=== PATIENT | male | born 1970 | race Caucasian/White ===

== ENCOUNTER 2018-01-14 23:09 | Inpatient (IN) | payer BC ==
[2018-01-14] MEDS ORDERED: Ketorolac 60 MG/2 ML SDV IM ONE (23:26)
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
[2018-01-15] MEDS ORDERED: HYDROmorphone 1 MG/ML Syringe IVPUSH ONE (00:31)
[2018-01-15 01:04] LABS: CHLORIDE,CL 105 mmol/L (98-107); SODIUM,NA 140 mmol/L (136-148)
[2018-01-15] MEDS ORDERED: Iopamidol 755 Mg/ML 100 ML Bottle IVPUSH ONE (01:58)
[2018-01-15] MEDS ORDERED: HYDROmorphone 2 MG/ML SDV IVPUSH PRN (02:36)
[2018-01-15] MEDS ORDERED: Ondansetron 4 MG/2 ML SDV IVPUSH PRN (02:37)
[2018-01-15] MEDS: Dextrose 5%-0.45% NaCl 1,000 ML IV SCH ×3 (03:22→17:29)
--- NOTE | 2018-01-15 10:33 | PCM.SN ---
- Free Text/Narrative Note: pt seen, chart reviewed, admit for observation; [id number]
[2018-01-15] MEDS ORDERED: HYDROmorphone 2 MG Tab PO PRN (10:34)
[2018-01-15] MEDS: Ketorolac 30 MG/ML SDV IVPUSH PRN ×2 (11:02→18:17)
[2018-01-15] MEDS: HYDROmorphone 2 MG Tab PO PRN ×2 (13:34→19:39)
[2018-01-15] MEDS ORDERED: Diazepam 2 MG Tab PO ONE (21:05)
[2018-01-15] MEDS: Morphine 4 MG/ML Syringe IVPUSH PRN (22:56)
[2018-01-16] MEDS: Dextrose 5%-0.45% NaCl 1,000 ML IV SCH ×3 (00:12→14:36)
[2018-01-16] MEDS ORDERED: Diazepam 2 MG Tab PO PRN ×2 (01:20→10:00)
[2018-01-16] MEDS: Morphine 4 MG/ML Syringe IVPUSH PRN ×4 (03:23→14:47)
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
[2018-01-16] MEDS: Docusate Sodium 100 MG Cap PO SCH (08:43)
--- NOTE | 2018-01-16 11:19 | CR ---
EXAM DATE: 01/15/18 PATIENT'S AGE: 47 Patient: IRIS VALDERRAMA Facility: [place], [place] Site . Site : 1970 Study: XRay Chest ribs [id number]/6/2018 12:29:37 AM Ordering Physician: Carlos Lake Final Report: INDICATION: Pain following fall TECHNIQUE: Chest and left ribs 3 views. COMPARISON: None FINDINGS: Cardiovascular and mediastinum: Heart size and vasculature are normal in caliber and appearance. Mediastinum is within normal limits. Lungs and pleural spaces: Lungs are clear. No sign of infiltrate or mass. No sign of pleural effusion. No pneumothorax. Bones and soft tissues: Fractures left 5th through 9th ribs. IMPRESSION: : Fractures left 5th through 9th ribs. Dictated by Drake Fry MD @ 01/15/2018 12:34:08 AM Dictated by: Drake Fry MD @ 01/15/2018 00:34:17 (Electronic Signature) Report Signed by Proxy. FAUZIA
--- NOTE | 2018-01-16 11:20 | CR ---
EXAM DATE: 01/15/18 PATIENT'S AGE: 47 Patient: IRIS VALDERRAMA Facility: [place], [place] Site . Site : 1970 Study: XRay Spine Thoracic thoracolumbar [id number]/6/2018 12:30:28 AM Ordering Physician: Carlos Lake Final Report: Indication: Pain following fall Technique: Two views thoracolumbar spine Comparison: None. Findings: No evidence of fractures or malalignment involving the psoas portions of thoracolumbar spine. Fractures of the left 8th and 9th ribs are noted. Please see left rib series report. Impression: No evidence of acute trauma involving visualized portions of the thoracolumbar spine. Dictated by Drake Fry MD @ 01/15/2018 12:38:19 AM Dictated by: Drake Fry MD @ 01/15/2018 00:38:28 (Electronic Signature) Report Signed by Proxy. FAUZIA
--- NOTE | 2018-01-16 11:21 | CT ---
EXAM DATE: 01/15/18 PATIENT'S AGE: 47 Patient: IRIS VALDERRAMA Facility: [place], [place] Site . Site : 1970 Study: CT Chest [id number]/6/2018 1:44:25 AM Ordering Physician: Carlos Lake Final Report: INDICATION: Rib fractures after fall TECHNIQUE: CT chest was acquired with 100 cc Isovue 370 IV contrast. COMPARISON: Chest radiograph from same day FINDINGS: Cardiovascular structures: Heart size is normal. Thoracic aorta and main pulmonary artery are normal in caliber. Mediastinum and felicia: No mass or adenopathy. All hiatal hernia. There is fluid within the distal esophagus. Lungs: Clear. Pleura and pericardium: No effusions. Small amount of left extrapleural hematoma adjacent to left-sided rib fractures Chest wall and axilla: No mass or adenopathy. Upper abdomen: Hepatic steatosis. The infiltration of the pancreas. Bones: Minimally displaced left posterior 6th through 9th rib fractures. IMPRESSION: 1. Minimally displaced left posterior 6th through 9th rib fractures with small amount of adjacent extrapleural hematoma. No pneumothorax or hemothorax. 2. Small hiatal hernia. 3. Fluid in the distal esophagus. This can be seen with reflux disease. 4. Hepatic steatosis. Please note that all CT scans at this facility use dose modulation, iterative reconstruction, and/or weight-based dosing when appropriate to reduce radiation dose to as low as reasonably achievable. Dictated by Binta Bartlett MD @ Jan 15 2018 1:47AM (Electronic Signature) Report Signed by Proxy. [facility]
--- NOTE | 2018-01-16 11:23 | CT ---
EXAM DATE: 01/15/18 PATIENT'S AGE: 47 Patient: IRIS VALDERRAMA Facility: [place], [place] Site . Site : 1970 Study: CT Abdomen/Pelvis [id number]/6/2018 1:44:59 AM Ordering Physician: Carlos Lake Final Report: INDICATION: Fall, rib fractures TECHNIQUE: CT abdomen and pelvis acquired with 100 cc Isovue 370 IV contrast. COMPARISON: None FINDINGS: Lower chest: Minimally displaced left posterior 7th through 10th rib fractures. Small amount of adjacent extrapleural hematoma. No hemothorax. Small hiatal hernia. Liver: Hepatic steatosis. Spleen: No splenic trauma. The spleen measures 16.7 cm in length. Pancreas: Fatty infiltration of the pancreas. Gallbladder and bile ducts: Unremarkable. Adrenal glands: Unremarkable. Kidneys: Unremarkable. GI tract: Unremarkable. Appendix is normal. Vascular structures: Unremarkable. Lymph nodes: Unremarkable. Miscellaneous: Unremarkable. No free air or significant free fluid. Pelvic Organs: Unremarkable. Bones: Unremarkable for age. IMPRESSION: 1. No organ injury within the abdomen or pelvis. 2. Minimally displaced left posterior 7th through 10th rib fractures. 3. Hepatic steatosis. 4. Splenomegaly. Please note that all CT scans at this facility use dose modulation, iterative reconstruction, and/or weight-based dosing when appropriate to reduce radiation dose to as low as reasonably achievable. Dictated by Binta Bartlett MD @ Jan 15 2018 1:53AM ----- ADDENDUM ----- Addendum: Impression #2 should read as follows: "Minimally displaced left posterior 6th through 9th rib fractures." Dictated by Binta Bartlett MD @ Jan 15 2018 2:04AM (Electronic Signature) Report Signed by Proxy. [facility]
[2018-01-16] MEDS: oxyCODONE 5 MG Tab PO PRN (11:48)
--- NOTE | 2018-01-16 12:22 | CT ---
EXAMINATION: CT chest without contrast HISTORY: Pain COMPARISON: 01/15/2018 TECHNIQUE: Axial CT images obtained through the chest without contrast. Coronal and sagittal reconstr uctions obtained. FINDINGS: Motion artifact is noted. There is a small left pleural effusion, dependent atelectasis chinyere aterally. No pneumothorax is noted. The heart is normal in size without a pericardial effusion. No me diastinal or axillary lymphadenopathy. Central airways are clear. There is fatty infiltration of the liver. The spleen is enlarged. Mildly displaced fifth through 10th left rib fractures noted. IMPRESSION: 1. Mildly displaced fifth through 10th left rib fractures noted. 2. Small left pleural effusion without pneumothorax. 3. Dependent atelectasis bilaterally. 4. Fatty infiltration of liver. 5. Splenomegaly.
--- NOTE | 2018-01-16 13:22 | CR ---
EXAM DATE: 01/15/18 PATIENT'S AGE: 47 Patient: IRIS VALDERRAMA Facility: [place], [place] Site . Site : 1970 Study: XRay Chest [id number]/[id number]/2018 11:52:51 AM Ordering Physician: Jovanna Keller Final Report: INDICATION: rib fractures TECHNIQUE: PA and lateral chest films are submitted. COMPARISON: Chest CT 01/15/2018. FINDINGS: As noted on CT, there are fractures involving the posterior left 6th through 9th ribs. No evidence for pneumothorax or hemothorax. Mild atelectatic changes at the lung bases, left greater than right. Heart size and pulmonary vasculature are normal. IMPRESSION: No significant change since the CT exam earlier today. Dictated by Brandon Maldonado MD @ 01/15/2018 12:16:09 PM Dictated by: Brandon Maldonado MD @ 01/15/2018 12:16:16 (Electronic Signature) Report Signed by Proxy. FAUZIA
[2018-01-16] MEDS ORDERED: Diazepam 2 MG Tab ONE (23:18)
[2018-01-17] MEDS: oxyCODONE 5 MG Tab PO PRN ×2 (03:11→07:18)
[2018-01-17] MEDS ORDERED: Diazepam 2 MG Tab PO PRN (03:30)
[2018-01-17] MEDS: Morphine 4 MG/ML Syringe IVPUSH PRN ×2 (03:59→07:18)
[2018-01-17] MEDS: Dextrose 5%-0.45% NaCl 1,000 ML IV SCH ×3 (04:02→17:20)
--- NOTE | 2018-01-17 09:23 | PCM.SURGPN ---
- General Info Date of Service: 01/16/18 - Patient Data Vitals - Most Recent: Last Vital Signs Temp 98.7 F 01/17/18 03:40 Pulse 80 01/17/18 07:46 Resp 18 01/17/18 07:46 BP 134/88 01/17/18 07:46 Pulse Ox 93 L 01/17/18 07:46 Weight - Most Recent: 246 lb I&O - Last 24 Hours: Intake & Output 01/16/18 01/17/18 01/17/18 22:59 06:59 14:59 Intake Total 1399 Output Total 3075 Balance -1676 Lab Results Last 24 Hrs: Laboratory Results - last 24 hr 01/17/18 Range/Units 09:05 WBC 10.79 (4.0-11.0) K/uL RBC 5.14 (4.50-5.90) M/uL Hgb 15.7 (13.0-17.0) g/dL Hct 44.0 (38.0-50.0) % MCV 85.6 (80.0-98.0) fL MCH 30.5 (27.0-32.0) pg MCHC 35.7 (31.0-37.0) g/dL RDW Std Deviation 42.4 (28.0-62.0) fl RDW Coeff of Sylvia 14 (11.0-15.0) % Plt Count 158 (150-400) K/uL MPV 10.20 (7.40-12.00) fL Neut % (Auto) 81.7 H (48.0-80.0) % Lymph % (Auto) 10.6 L (16.0-40.0) % [place] % (Auto) 7.3 (0.0-15.0) % Eos % (Auto) 0.3 (0.0-7.0) % Baso % (Auto) 0.1 (0.0-1.5) % Neut # (Auto) 8.8 H (1.4-5.7) K/uL Lymph # (Auto) 1.1 (0.6-2.4) K/uL [place] # (Auto) 0.8 (0.0-0.8) K/uL Eos # (Auto) 0.0 (0.0-0.7) K/uL Baso # (Auto) 0.0 (0.0-0.1) K/uL Nucleated RBC % 0.0 /100WBC Nucleated RBCs # 0 K/uL Med Orders - Current: Current Medications Diazepam (Valium) 2 mg PO Q12H PRN PRN Reason: Anxiety Docusate Sodium (Colace) 100 mg PO DAILY [facility] Last Admin: 01/16/18 08:43 Dose: 100 mg Dextrose/Sodium Chloride (Dextrose 5%-1/2 Ns) 1,000 mls @ 150 mls/hr IV ASDIRECTED [facility] Last Admin: 01/17/18 04:02 Dose: 150 mls/hr Morphine Sulfate (Morphine) 3 mg IVPUSH Q3H PRN PRN Reason: Pain Last Admin: 01/17/18 07:18 Dose: 3 mg Ondansetron HCl (Zofran) 4 mg IVPUSH Q4H PRN PRN Reason: Nausea/Vomiting Oxycodone HCl (Oxycodone) 5 mg PO Q4H PRN PRN Reason: Pain Last Admin: 01/17/18 07:18 Dose: 5 mg Discontinued Medications Diazepam (Valium) 1 mg PO ONETIME ONE Stop: 01/15/18 21:06 Last Admin: 01/15/18 21:13 Dose: 1 mg Diazepam (Valium) 1 mg PO BID PRN PRN Reason: Spasms Last Admin: 01/16/18 08:41 Dose: 1 mg Diazepam (Valium) 1 mg PO Q8H PRN PRN Reason: Spasms Diazepam (Valium) Confirm Administered Dose 2 mg .ROUTE .STK-MED ONE Stop: 01/16/18 23:19 Last Admin: 01/17/18 03:31 Dose: Not Given Hydromorphone HCl (Dilaudid) 1 mg IVPUSH ONETIME ONE Stop: 01/15/18 00:32 Last Admin: 01/15/18 00:35 Dose: 1 mg Hydromorphone HCl (Dilaudid) 1 mg IVPUSH Q4H PRN PRN Reason: Pain Last Admin: 01/15/18 09:29 Dose: 1 mg Hydromorphone HCl (Dilaudid) 2 mg PO Q6H PRN PRN Reason: Pain Hydromorphone HCl (Dilaudid) 2 mg PO Q6H PRN PRN Reason: Pain (moderate 4-6) Last Admin: 01/15/18 19:39 Dose: 2 mg Iopamidol (Isovue-370 (76%)) 100 ml IVPUSH ONETIME ONE Stop: 01/15/18 01:59 Last Admin: 01/15/18 02:12 Dose: 100 ml Ketorolac Tromethamine (Toradol) 60 mg IM ONETIME ONE Stop: 01/14/18 23:27 Last Admin: 01/14/18 23:30 Dose: 60 mg Ketorolac Tromethamine (Toradol) 30 mg IVPUSH Q8H PRN PRN Reason: Abdominal Pain Stop: 01/20/18 10:48 Last Admin: 01/15/18 18:17 Dose: 30 mg Morphine Sulfate (Morphine) 3 mg IVPUSH Q4H PRN PRN Reason: Pain Last Admin: 01/16/18 07:33 Dose: 3 mg - Exam General: Alert, Oriented (howling for pain every now and then, no desat or breathing problems; pt is on iv mso4) HEENT: Pupils Equal Neck: Supple Lungs: Normal Respiratory Effort Cardiovascular: Regular Rate GI/Abdominal Exam: No Distention (no bm X 2 days) - Problem List Review Problem List Initiated/Reviewed/Updated: Yes - My Orders Last 24 Hours: Active Orders 24 hr Category Date Time Status Diazepam [Valium] Med 01/17/18 03:30 Active 2 mg PO Q12H PRN Docusate Sodium [Colace] Med 01/16/18 09:00 Active 100 mg PO DAILY Morphine Med 01/16/18 10:00 Active 3 mg IVPUSH Q3H PRN oxyCODONE Med 01/16/18 10:51 Active 5 mg PO Q4H PRN Medication Orders Diazepam (Valium) 2 mg PO Q12H PRN PRN Reason: Anxiety Docusate Sodium (Colace) 100 mg PO DAILY [facility] Last Admin: 01/16/18 08:43 Dose: 100 mg Dextrose/Sodium Chloride (Dextrose 5%-1/2 Ns) 1,000 mls @ 150 mls/hr IV ASDIRECTED [facility] Last Admin: 01/17/18 04:02 Dose: 150 mls/hr Infusion: 01/16/18 21:17 Dose: 150 mls/hr Admin: 01/16/18 14:36 Dose: 150 mls/hr Infusion: 01/16/18 14:00 Dose: 150 mls/hr Admin: 01/16/18 07:19 Dose: 150 mls/hr Infusion: 01/16/18 06:53 Dose: 150 mls/hr Admin: 01/16/18 00:12 Dose: 150 mls/hr Infusion: 01/16/18 00:10 Dose: 150 mls/hr Admin: 01/15/18 17:29 Dose: 150 mls/hr Infusion: 01/15/18 17:29 Dose: 150 mls/hr Admin: 01/15/18 11:12 Dose: 150 mls/hr Infusion: 01/15/18 10:03 Dose: 150 mls/hr Admin: 01/15/18 03:22 Dose: 150 mls/hr Morphine Sulfate (Morphine) 3 mg IVPUSH Q3H PRN PRN Reason: Pain Last Admin: 01/17/18 07:18 Dose: 3 mg Admin: 01/17/18 03:59 Dose: 3 mg Admin: 01/16/18 14:47 Dose: 3 mg Admin: 01/16/18 10:17 Dose: 3 mg Ondansetron HCl (Zofran) 4 mg IVPUSH Q4H PRN PRN Reason: Nausea/Vomiting Oxycodone HCl (Oxycodone) 5 mg PO Q4H PRN PRN Reason: Pain Last Admin: 01/17/18 07:18 Dose: 5 mg Admin: 01/17/18 03:11 Dose: 5 mg Admin: 01/16/18 11:48 Dose: 5 mg - Assessment Assessment (Free Text/Narrative):: 1) increase pain, repeat ct chest 2) increase pain meds 3) continue colace 4) encourage inc spir and mobilization 5) regular diet - Plan Plan (Free Text/Narrative):: 1) increase pain, repeat ct chest 2) increase pain meds 3) continue colace 4) encourage inc spir and mobilization 5) regular diet
[2018-01-17] MEDS ORDERED: Morphine 10 MG/ML Syringe ONE (09:27)
--- NOTE | 2018-01-17 09:27 | PCM.SURGPN ---
- General Info Date of Service: 01/17/18 - Review of Systems General: Reports: No Symptoms Pulmonary: Reports: No Symptoms Gastrointestinal: Reports: No Symptoms (no bm X 3 days, still howling for pain meds, pt is on 36 mg mso4,24 mg oxy,2mg valium) - Patient Data Vitals - Most Recent: Last Vital Signs Temp 98.7 F 01/17/18 03:40 Pulse 80 01/17/18 07:46 Resp 18 01/17/18 07:46 BP 134/88 01/17/18 07:46 Pulse Ox 93 L 01/17/18 07:46 Weight - Most Recent: 246 lb I&O - Last 24 Hours: Intake & Output 01/16/18 01/17/18 01/17/18 22:59 06:59 14:59 Intake Total 1399 Output Total 3075 Balance -1676 Lab Results Last 24 Hrs: Laboratory Results - last 24 hr 01/17/18 Range/Units 09:05 WBC 10.79 (4.0-11.0) K/uL RBC 5.14 (4.50-5.90) M/uL Hgb 15.7 (13.0-17.0) g/dL Hct 44.0 (38.0-50.0) % MCV 85.6 (80.0-98.0) fL MCH 30.5 (27.0-32.0) pg MCHC 35.7 (31.0-37.0) g/dL RDW Std Deviation 42.4 (28.0-62.0) fl RDW Coeff of Sylvia 14 (11.0-15.0) % Plt Count 158 (150-400) K/uL MPV 10.20 (7.40-12.00) fL Neut % (Auto) 81.7 H (48.0-80.0) % Lymph % (Auto) 10.6 L (16.0-40.0) % Rich % (Auto) 7.3 (0.0-15.0) % Eos % (Auto) 0.3 (0.0-7.0) % Baso % (Auto) 0.1 (0.0-1.5) % Neut # (Auto) 8.8 H (1.4-5.7) K/uL Lymph # (Auto) 1.1 (0.6-2.4) K/uL Rich # (Auto) 0.8 (0.0-0.8) K/uL Eos # (Auto) 0.0 (0.0-0.7) K/uL Baso # (Auto) 0.0 (0.0-0.1) K/uL Nucleated RBC % 0.0 /100WBC Nucleated RBCs # 0 K/uL Med Orders - Current: Current Medications Diazepam (Valium) 2 mg PO Q12H PRN PRN Reason: Anxiety Docusate Sodium (Colace) 100 mg PO DAILY [facility] Last Admin: 01/16/18 08:43 Dose: 100 mg Dextrose/Sodium Chloride (Dextrose 5%-1/2 Ns) 1,000 mls @ 150 mls/hr IV ASDIRECTED [facility] Last Admin: 01/17/18 04:02 Dose: 150 mls/hr Morphine Sulfate (Morphine) 3 mg IVPUSH Q3H PRN PRN Reason: Pain Last Admin: 01/17/18 07:18 Dose: 3 mg Ondansetron HCl (Zofran) 4 mg IVPUSH Q4H PRN PRN Reason: Nausea/Vomiting Oxycodone HCl (Oxycodone) 5 mg PO Q4H PRN PRN Reason: Pain Last Admin: 01/17/18 07:18 Dose: 5 mg Discontinued Medications Diazepam (Valium) 1 mg PO ONETIME ONE Stop: 01/15/18 21:06 Last Admin: 01/15/18 21:13 Dose: 1 mg Diazepam (Valium) 1 mg PO BID PRN PRN Reason: Spasms Last Admin: 01/16/18 08:41 Dose: 1 mg Diazepam (Valium) 1 mg PO Q8H PRN PRN Reason: Spasms Diazepam (Valium) Confirm Administered Dose 2 mg .ROUTE .STK-MED ONE Stop: 01/16/18 23:19 Last Admin: 01/17/18 03:31 Dose: Not Given Hydromorphone HCl (Dilaudid) 1 mg IVPUSH ONETIME ONE Stop: 01/15/18 00:32 Last Admin: 01/15/18 00:35 Dose: 1 mg Hydromorphone HCl (Dilaudid) 1 mg IVPUSH Q4H PRN PRN Reason: Pain Last Admin: 01/15/18 09:29 Dose: 1 mg Hydromorphone HCl (Dilaudid) 2 mg PO Q6H PRN PRN Reason: Pain Hydromorphone HCl (Dilaudid) 2 mg PO Q6H PRN PRN Reason: Pain (moderate 4-6) Last Admin: 01/15/18 19:39 Dose: 2 mg Iopamidol (Isovue-370 (76%)) 100 ml IVPUSH ONETIME ONE Stop: 01/15/18 01:59 Last Admin: 01/15/18 02:12 Dose: 100 ml Ketorolac Tromethamine (Toradol) 60 mg IM ONETIME ONE Stop: 01/14/18 23:27 Last Admin: 01/14/18 23:30 Dose: 60 mg Ketorolac Tromethamine (Toradol) 30 mg IVPUSH Q8H PRN PRN Reason: Abdominal Pain Stop: 01/20/18 10:48 Last Admin: 01/15/18 18:17 Dose: 30 mg Morphine Sulfate (Morphine) 3 mg IVPUSH Q4H PRN PRN Reason: Pain Last Admin: 01/16/18 07:33 Dose: 3 mg - Exam General: Alert, Oriented Cardiovascular: Regular Rate, Regular Rhythm (B bs) - Problem List Review Problem List Initiated/Reviewed/Updated: Yes - My Orders Last 24 Hours: Active Orders 24 hr Category Date Time Status Diazepam [Valium] Med 01/17/18 03:30 Active 2 mg PO Q12H PRN Docusate Sodium [Colace] Med 01/16/18 09:00 Active 100 mg PO DAILY Morphine Med 01/16/18 10:00 Active 3 mg IVPUSH Q3H PRN oxyCODONE Med 01/16/18 10:51 Active 5 mg PO Q4H PRN Medication Orders Diazepam (Valium) 2 mg PO Q12H PRN PRN Reason: Anxiety Docusate Sodium (Colace) 100 mg PO DAILY [facility] Last Admin: 01/16/18 08:43 Dose: 100 mg Dextrose/Sodium Chloride (Dextrose 5%-1/2 Ns) 1,000 mls @ 150 mls/hr IV ASDIRECTED [facility] Last Admin: 01/17/18 04:02 Dose: 150 mls/hr Infusion: 01/16/18 21:17 Dose: 150 mls/hr Admin: 01/16/18 14:36 Dose: 150 mls/hr Infusion: 01/16/18 14:00 Dose: 150 mls/hr Admin: 01/16/18 07:19 Dose: 150 mls/hr Infusion: 01/16/18 06:53 Dose: 150 mls/hr Admin: 01/16/18 00:12 Dose: 150 mls/hr Infusion: 01/16/18 00:10 Dose: 150 mls/hr Admin: 01/15/18 17:29 Dose: 150 mls/hr Infusion: 01/15/18 17:29 Dose: 150 mls/hr Admin: 01/15/18 11:12 Dose: 150 mls/hr Infusion: 01/15/18 10:03 Dose: 150 mls/hr Admin: 01/15/18 03:22 Dose: 150 mls/hr Morphine Sulfate (Morphine) 3 mg IVPUSH Q3H PRN PRN Reason: Pain Last Admin: 01/17/18 07:18 Dose: 3 mg Admin: 01/17/18 03:59 Dose: 3 mg Admin: 01/16/18 14:47 Dose: 3 mg Admin: 01/16/18 10:17 Dose: 3 mg Ondansetron HCl (Zofran) 4 mg IVPUSH Q4H PRN PRN Reason: Nausea/Vomiting Oxycodone HCl (Oxycodone) 5 mg PO Q4H PRN PRN Reason: Pain Last Admin: 01/17/18 07:18 Dose: 5 mg Admin: 01/17/18 03:11 Dose: 5 mg Admin: 01/16/18 11:48 Dose: 5 mg - Assessment Assessment (Free Text/Narrative):: 1) CT low lung volume, no ptx, mildly displaced rib fx; no overlap; d/w radiologist 2) no bm X 3 days, colace 100mg per day, and dulcolax pr X 1 10 mg today 3) recheck blood work 4) change to inpatient 5) iv mso4 dec to 2 mg iv q4, and oxy 5 mg q6 prn pain, valium 1mg po q12 prn nerve - Plan Plan (Free Text/Narrative):: 1) CT low lung volume, no ptx, mildly displaced rib fx; no overlap; d/w radiologist 2) no bm X 3 days, colace 100mg per day, and dulcolax pr X 1 10 mg today 3) recheck blood work 4) change to inpatient 5) iv mso4 dec to 2 mg iv q4, and oxy 5 mg q6 prn pain, valium 1mg po q12 prn nerve
[2018-01-17] MEDS ORDERED: oxyCODONE 5 MG Tab PO PRN (09:33)
[2018-01-17] MEDS ORDERED: Bisacodyl 10 MG Supp RECTAL ONE (09:48)
[2018-01-17] MEDS ORDERED: Cyclobenzaprine 5 MG Tab PO PRN ×2 (09:49→16:57)
[2018-01-17] MEDS: Docusate Sodium 100 MG Cap PO SCH (10:11)
[2018-01-17] MEDS: Morphine 4 MG/ML Syringe IV PRN ×2 (10:42→15:13)
--- NOTE | 2018-01-17 11:52 | CR ---
EXAM DATE: 01/17/18 PATIENT'S AGE: 47 Patient: IRIS VALDERRAMA Facility: [place], [place] Site . Site : 1970 Study: XRay Chest [id number]/6/2018 9:21:25 PM Ordering Physician: Jovanna Keller Final Report: INDICATION: Pain and shortness of breath, multiple left rib fractures TECHNIQUE: Chest 1 view. COMPARISON: 12:04 a.m. FINDINGS: Cardiovascular and mediastinum: Heart size and vasculature are normal in caliber and appearance. Mediastinum is within normal limits. Lungs and pleural space: Low lung volumes. No sign of infiltrate or mass. No sign of pleural effusion. No pneumothorax. Bones and soft tissues: No significant findings. IMPRESSION: Low lung volumes. Dictated by Drake Fry MD @ 01/15/2018 10:09:51 PM Dictated by: Drake Fry MD @ 01/15/2018 22:09:54 (Electronic Signature) Report Signed by Proxy. FAUZIA
--- NOTE | 2018-01-17 13:07 | PCM.SN ---
- Free Text/Narrative Note: pt sitting in toilet having BM; pain meds so far tolerable
--- NOTE | 2018-01-17 17:04 | PCM.SN ---
- Free Text/Narrative Note: pt continue to co pain management; change to morphine steam shovelman, and flexeril, and valium; will address with anesthesia team, for possible epidural?
[2018-01-17] MEDS: Morphine PF 30 MG/30 ML PCA Vial IV SCH (17:22)
[2018-01-17] MEDS: Diazepam 2 MG Tab PO PRN (17:39)
[2018-01-18] MEDS: Dextrose 5%-0.45% NaCl 1,000 ML IV SCH ×2 (00:27→07:48)
[2018-01-18] MEDS: Diazepam 2 MG Tab PO PRN ×2 (05:23→22:00)
[2018-01-18] MEDS: Morphine PF 30 MG/30 ML PCA Vial IV SCH ×2 (06:09→21:41)
[2018-01-18] MEDS: Docusate Sodium 100 MG Cap PO SCH (08:49)
--- NOTE | 2018-01-18 10:25 | PCM.SURGPN ---
- General Info Date of Service: 01/18/18 - Review of Systems General: Reports: No Symptoms (pain continue an issue, seismograph helper take care of it, but still co) - Patient Data Vitals - Most Recent: Last Vital Signs Temp 97 F 01/18/18 04:00 Pulse 75 01/18/18 10:00 Resp 20 01/18/18 10:00 BP 138/103 H 01/18/18 10:00 Pulse Ox 94 L 01/18/18 10:00 Weight - Most Recent: 246 lb I&O - Last 24 Hours: Intake & Output 01/17/18 01/18/18 01/18/18 22:59 06:59 14:59 Intake Total 2892 600 Output Total 1975 1250 Balance 917 -650 Med Orders - Current: Current Medications Cyclobenzaprine HCl (Flexeril) 10 mg PO BID PRN PRN Reason: Pain Last Admin: 01/17/18 19:47 Dose: 10 mg Diazepam (Valium) 2 mg PO BID PRN PRN Reason: Anxiety Last Admin: 01/18/18 05:23 Dose: 2 mg Docusate Sodium (Colace) 100 mg PO DAILY [facility] Last Admin: 01/18/18 08:49 Dose: 100 mg Dextrose/Sodium Chloride (Dextrose 5%-1/2 Ns) 1,000 mls @ 150 mls/hr IV ASDIRECTED [facility] Last Admin: 01/18/18 07:48 Dose: 150 mls/hr Morphine Sulfate (Morphine Bandage Winding Machine Operator 30 Mg In 30 Ml) 30 mg IV ASDIRECTED [facility]; Protocol Last Admin: 01/18/18 06:09 Dose: 30 mg Ondansetron HCl (Zofran) 4 mg IVPUSH Q4H PRN PRN Reason: Nausea/Vomiting Discontinued Medications Bisacodyl (Dulcolax) 10 mg RECTAL ONETIME ONE Stop: 01/17/18 09:49 Last Admin: 01/17/18 10:30 Dose: 10 mg Cyclobenzaprine HCl (Flexeril) 5 mg PO BID PRN PRN Reason: Pain Last Admin: 01/17/18 10:11 Dose: 5 mg Diazepam (Valium) 1 mg PO ONETIME ONE Stop: 01/15/18 21:06 Last Admin: 01/15/18 21:13 Dose: 1 mg Diazepam (Valium) 1 mg PO BID PRN PRN Reason: Spasms Last Admin: 01/16/18 08:41 Dose: 1 mg Diazepam (Valium) 1 mg PO Q8H PRN PRN Reason: Spasms Diazepam (Valium) Confirm Administered Dose 2 mg .ROUTE .STK-MED ONE Stop: 01/16/18 23:19 Last Admin: 01/17/18 03:31 Dose: Not Given Diazepam (Valium) 2 mg PO Q12H PRN PRN Reason: Anxiety Hydromorphone HCl (Dilaudid) 1 mg IVPUSH ONETIME ONE Stop: 01/15/18 00:32 Last Admin: 01/15/18 00:35 Dose: 1 mg Hydromorphone HCl (Dilaudid) 1 mg IVPUSH Q4H PRN PRN Reason: Pain Last Admin: 01/15/18 09:29 Dose: 1 mg Hydromorphone HCl (Dilaudid) 2 mg PO Q6H PRN PRN Reason: Pain Hydromorphone HCl (Dilaudid) 2 mg PO Q6H PRN PRN Reason: Pain (moderate 4-6) Last Admin: 01/15/18 19:39 Dose: 2 mg Iopamidol (Isovue-370 (76%)) 100 ml IVPUSH ONETIME ONE Stop: 01/15/18 01:59 Last Admin: 01/15/18 02:12 Dose: 100 ml Ketorolac Tromethamine (Toradol) 60 mg IM ONETIME ONE Stop: 01/14/18 23:27 Last Admin: 01/14/18 23:30 Dose: 60 mg Ketorolac Tromethamine (Toradol) 30 mg IVPUSH Q8H PRN PRN Reason: Abdominal Pain Stop: 01/20/18 10:48 Last Admin: 01/15/18 18:17 Dose: 30 mg Morphine Sulfate (Morphine) 3 mg IVPUSH Q4H PRN PRN Reason: Pain Last Admin: 01/16/18 07:33 Dose: 3 mg Morphine Sulfate (Morphine) 3 mg IVPUSH Q3H PRN PRN Reason: Pain Last Admin: 01/17/18 07:18 Dose: 3 mg Morphine Sulfate (Morphine) 10 mg .ROUTE .STK-MED ONE Stop: 01/17/18 09:28 Morphine Sulfate (Morphine) 2 mg IV Q4H PRN PRN Reason: Pain Last Admin: 01/17/18 15:13 Dose: 2 mg Oxycodone HCl (Oxycodone) 5 mg PO Q4H PRN PRN Reason: Pain Last Admin: 01/17/18 07:18 Dose: 5 mg Oxycodone HCl (Oxycodone) 5 mg PO Q6H PRN PRN Reason: Pain Last Admin: 01/17/18 12:48 Dose: 5 mg - Exam General: Alert, Oriented Lungs: Normal Respiratory Effort GI/Abdominal Exam: Soft, No Organomegaly, No Distention - Problem List Review Problem List Initiated/Reviewed/Updated: Yes - My Orders Last 24 Hours: Active Orders 24 hr Category Date Time Status Admission Status [Patient Status] [ADT] Routine ADT 01/17/18 09:49 Active Communication Order [RC] STAT Care 01/17/18 16:52 Active Notify Provider Consults [RC] ASDIRECTED Care 01/18/18 10:20 Ordered Notify Provider [RC] PRN Care 01/17/18 16:52 Active Pulse Oximetry [RC] CONTINUOUS Care 01/17/18 16:52 Active Consult to Physical Therapy [PT Evaluation and Cons 01/18/18 10:10 Active Treatment] [CONS] Routine Consult to Physical Therapy [PT Evaluation and Cons 01/18/18 10:20 Ordered Treatment] [CONS] Routine Consult to Physician [CONS] Routine Cons 01/18/18 10:19 Ordered Cyclobenzaprine [Flexeril] Med 01/17/18 16:57 Active 10 mg PO BID PRN Diazepam [Valium] Med 01/17/18 16:58 Active 2 mg PO BID PRN Morphine PF [Morphine BAKELITE MOLDER 30 MG in 30 ML] Med 01/17/18 17:00 Active 30 mg IV ASDIRECTED Medication Discontinuation Instructions [OM.PC] Stat Oth 01/17/18 16:52 Ordered Medication Orders Cyclobenzaprine HCl (Flexeril) 10 mg PO BID PRN PRN Reason: Pain Last Admin: 01/17/18 19:47 Dose: 10 mg Diazepam (Valium) 2 mg PO BID PRN PRN Reason: Anxiety Last Admin: 01/18/18 05:23 Dose: 2 mg Admin: 01/17/18 17:39 Dose: 2 mg Docusate Sodium (Colace) 100 mg PO DAILY [facility] Last Admin: 01/18/18 08:49 Dose: 100 mg Admin: 01/17/18 10:11 Dose: 100 mg Admin: 01/16/18 08:43 Dose: 100 mg Dextrose/Sodium Chloride (Dextrose 5%-1/2 Ns) 1,000 mls @ 150 mls/hr IV ASDIRECTED [facility] Last Admin: 01/18/18 07:48 Dose: 150 mls/hr Infusion: 01/18/18 07:08 Dose: 150 mls/hr Admin: 01/18/18 00:27 Dose: 150 mls/hr Infusion: 01/18/18 00:01 Dose: 150 mls/hr Admin: 01/17/18 17:20 Dose: 150 mls/hr Infusion: 01/17/18 17:20 Dose: 150 mls/hr Admin: 01/17/18 10:48 Dose: 150 mls/hr Infusion: 01/17/18 10:43 Dose: 150 mls/hr Admin: 01/17/18 04:02 Dose: 150 mls/hr Infusion: 01/16/18 21:17 Dose: 150 mls/hr Admin: 01/16/18 14:36 Dose: 150 mls/hr Infusion: 01/16/18 14:00 Dose: 150 mls/hr Admin: 01/16/18 07:19 Dose: 150 mls/hr Infusion: 01/16/18 06:53 Dose: 150 mls/hr Admin: 01/16/18 00:12 Dose: 150 mls/hr Infusion: 01/16/18 00:10 Dose: 150 mls/hr Admin: 01/15/18 17:29 Dose: 150 mls/hr Infusion: 01/15/18 17:29 Dose: 150 mls/hr Admin: 01/15/18 11:12 Dose: 150 mls/hr Infusion: 01/15/18 10:03 Dose: 150 mls/hr Admin: 01/15/18 03:22 Dose: 150 mls/hr Morphine Sulfate (Morphine Bandage Winding Machine Operator 30 Mg In 30 Ml) 30 mg IV ASDIRECTED [facility]; Protocol Last Admin: 01/18/18 06:09 Dose: 30 mg Admin: 01/17/18 17:22 Dose: 30 mg Ondansetron HCl (Zofran) 4 mg IVPUSH Q4H PRN PRN Reason: Nausea/Vomiting - Assessment Assessment (Free Text/Narrative):: day 5 from injury, still have pain issue; occasional htn to 170, mostly hovering around 150; on morphine seismograph helper, valium, flexeril; consult PT to learn how to move with less pain, and hospitalist for htn and pain management - Plan Plan (Free Text/Narrative):: day 5 from injury, still have pain issue; occasional htn to 170, mostly hovering around 150; on morphine seismograph helper, valium, flexeril; consult PT to learn how to move with less pain, and hospitalist for htn and pain management
--- NOTE | 2018-01-18 10:58 | PCM.CONS ---
H&P History of Present Illness - General Date of Service: 01/18/18 Admit Problem/Dx: Admission Diagnosis/Problem Admission Diagnosis/Problem Trauma of chest - History of Present Illness Initial Comments - Free Text/Narative: 47 yo male with no pmh was admitted on 01/15/18 for multiple rib fractures. Injury occurred following a ground-level fall resulting in blunt trauma to anterior chest wall. Imaging revealed minimally displaced fractures of left ribs 5-9. Patient was admitted to surgery. There were no indications for surgery therefore he has been managed medically only. His pain levels were quite severe at admission and remained so for several days until he was started on Morphine CAMPUS EXECUTIVE DIRECTOR pump. The pump is currently set for him to receive 0.5 mg every 6 minutes with maximum of 20 mg every 4 hours. Patient states today his pain has improved but is still becomes severe intermittently. He has been using his CAMPUS EXECUTIVE DIRECTOR pump maximally to tolerate the pain. He states he is having spasms of this left anterior chest wall was are causing him the most amount of distress. These spasms have not been responding to the cyclobenzaprine but have had some response to the morphine. Kurtis bandage was applied to over the ribs which he feels does provide some relief. He denies any pmh and does not take any daily medications. He admits to drinking 1-2x per week with anywhere from 2-10 drinks per sitting. He denies any history of alcohol dependence or withdrawal. He smokes 1 pack of cigs per month and has been doing so for about 5 years. He denies any history of drug use including IVDA. He denies any history of blood transfusions but has had multiple surgeries for which he is unsure if he received blood. He denies any known history of liver disease. He sees Dr. Parker as his PCP. Left Thoracic Pain Score (Numeric/FACES): 5 Left Shoulder Pain Score (Numeric/FACES): 6 middle back Pain Score (Numeric/FACES): 3 - Related Data Allergies/Adverse Reactions: Allergies Allergy/AdvReac Type Severity Reaction Status Date / Time No Known Allergies Allergy Verified 01/14/18 23:20 Home Medications: Home Meds . [No Known Home Meds] 01/14/18 [History] Past Medical History HEENT History: Reports: Cataract Other HEENT History: both eyes Gastrointestinal History: Reports: Other (See Below) Other Gastrointestinal History: umbilical hernia - Infectious Disease History Infectious Disease History: Reports: None - Past Surgical History HEENT Surgical History: Reports: Cataract Surgery GI Surgical History: Reports: Other (See Below) Other GI Surgeries/Procedures: umbilical hernia Musculoskeletal Surgical History: Reports: Carpal Tunnel Other Musculoskeletal Surgeries/Procedures:: both wrists Social & Family History - Family History Family Medical History: Noncontributory - Tobacco Use Smoking Status *Q: Current Some Day Smoker Years of Tobacco use: 5 Packs/Tins Daily: 0 - Caffeine Use Caffeine Use: Reports: Coffee, Energy Drinks, Soda, Tea - Recreational Drug Use Recreational Drug Use: No H&P Review of Systems - Review of Systems: Review Of Systems: See Below General: Reports: No Symptoms HEENT: Reports: No Symptoms Pulmonary: Reports: No Symptoms Cardiovascular: Reports: No Symptoms Gastrointestinal: Reports: No Symptoms Genitourinary: Reports: No Symptoms Musculoskeletal: Reports: Other (anterior rib pain ) Skin: Reports: No Symptoms Psychiatric: Reports: No Symptoms Neurological: Reports: No Symptoms Hematologic/Lymphatic: Reports: No Symptoms Immunologic: Reports: No Symptoms Exam - Exam Exam: See Below - Vital Signs Vital Signs: Last Vital Signs Temp 36.1 C 01/18/18 04:00 Pulse 75 01/18/18 10:00 Resp 20 01/18/18 10:00 BP 138/103 H 01/18/18 10:00 Pulse Ox 94 L 01/18/18 10:00 Weight: 111.584 kg - Exam Quality Assessment: Supplemental Oxygen General: Alert, Oriented HEENT: Conjunctiva Clear, EACs Clear, EOMI, Hearing Intact, Mucosa Moist & Key[place] , Nares Patent, Normal Nasal Septum, Posterior Pharynx Clear, Pupils Equal, Pupils Reactive Neck: Supple, Trachea Midline Lungs: Clear to Auscultation, Decreased Breath Sounds Cardiovascular: Regular Rate, Regular Rhythm GI/Abdominal Exam: Normal Bowel Sounds, Soft Extremities: Normal Inspection, No Pedal Edema Skin: Warm, Dry, Intact Neuro Extensive - Mental Status: Alert, Oriented x3 Psychiatric: Alert, Normal Affect, Normal Mood - Patient Data Result Diagrams: 01/17/18 09:05 01/15/18 00:35 Consult PN Assessment/Plan Procedures: Procedures POLYSOM 6/>YRS CPAP 4/> PARM (08/15/17) Problem List Initiated/Reviewed/Updated: Yes My Orders Last 24 Hours: My Active Orders 01/18/18 10:10 Consult to Physical Therapy [PT Evaluation and Treatment] [CONS] Routine 01/18/18 10:24 HEPATITIS B SURF AB QUANT [REF] Routine HEPATITIS PANEL (4) [REF] Routine Plan: #Multiple Rib Fractures, Left ribs 5-9, minimally displaced -no surgical indication as per general surgery -pain starting to improve since initiation of Morphine pump 0.5 mg/6 minutes with maximum 20 mg/4 hours -on supplemental O2 1L via LFNC Plan: -continue Morphine CAMPUS EXECUTIVE DIRECTOR -start Oxycodone 10 mg PO QID PRN pain -consult PT -DC Flexeryl #elevated BP without history of HTN, improving -no indication for medical therapy at this time -continue to monitor #Elevated LFT #Fatty Liver, on CT #Alcohol Use Disorder -ALT 224, AST 96, Borderline low normal platelet 156k -patient admits to moderate alcohol use, denies history of IVDA, blood transfusion or chronic liver disease Plan: -repeat CMP, Hepatitis panel, GGT, LDH, Iron, TIBC, Ferritin #Splenomegaly, on CT -differential includes chronic liver disease vs inflammatory reaction to overlying rib fractures -plan as per above Date Consult Requested: 01/18/18
[2018-01-18] MEDS: oxyCODONE 5 MG Tab PO PRN ×2 (12:35→19:12)
[2018-01-18 13:02] LABS: CHLORIDE,CL 99 mmol/L (98-107); SODIUM,NA 135 mmol/L (136-148)
[2018-01-18] MEDS ORDERED: Dextrose 5%-0.45% NaCl 1,000 ML IV SCH (15:15)
[2018-01-19] MEDS: oxyCODONE 5 MG Tab PO PRN ×2 (01:08→09:24)
[2018-01-19 05:51] LABS: CHLORIDE,CL 99 mmol/L (98-107); SODIUM,NA 137 mmol/L (136-148)
--- NOTE | 2018-01-19 08:25 | PCM.CONSN ---
- General Info Date of Service: 01/19/18 Subjective Update: Patient states he feels better today and pain and spasms are improving overall. He is still having intermittent bouts of severe pain and difficulty with movement and ambulation. He denies any abdominal pain, nausea, vomiting, diarrhea. He is tolerating PO intake. Functional Status: Reports: Tolerating Diet, Ambulating - Review of Systems General: Reports: No Symptoms HEENT: Reports: No Symptoms Pulmonary: Reports: No Symptoms Cardiovascular: Reports: No Symptoms Gastrointestinal: Reports: No Symptoms. Denies: Abdominal Pain, Constipation, Decreased Appetite, Diarrhea, Hematochezia, Melena, Nausea, Vomiting Genitourinary: Reports: No Symptoms Musculoskeletal: Reports: Other (rib pain ) Skin: Reports: No Symptoms Neurological: Reports: No Symptoms Psychiatric: Reports: No Symptoms - Patient Data Vitals - Most Recent: Last Vital Signs Temp 37.1 C 01/19/18 04:00 Pulse 90 01/19/18 04:00 Resp 20 01/19/18 04:00 BP 128/81 01/19/18 04:00 Pulse Ox 95 01/19/18 04:00 Weight - Most Recent: 111.584 kg I&O - Last 24 Hours: Intake & Output 01/18/18 01/19/18 01/19/18 22:59 06:59 14:59 Intake Total 596 Output Total 1000 Balance -404 Lab Results Last 24 Hours: Laboratory Results - last 24 hr 01/18/18 01/18/18 01/18/18 Range/Units 11:07 11:07 11:07 INR 1.04 Sodium (136-148) mmol/L Potassium (3.5-5.1) mmol/L Chloride (98-107) mmol/L Carbon Dioxide (21.0-32.0) mmol/L BUN (7.0-18.0) mg/dL Creatinine (0.8-1.3) mg/dL Est Cr Clr Drug Dosing mL/min Estimated GFR (MDRD) ml/min Glucose (74-106) mg/dL Hemoglobin A1c (4.5-6.2) % Calcium (8.5-10.1) mg/dL Iron 45 L (50-175) ug/dL TIBC 241 L (250-450) ug/dL % Saturation 18.67 L (20-55) % Ferritin 457 H (26-388) ng/mL Total Bilirubin (0.2-1.0) mg/dL GGT 160 H (5-85) U/L AST (15-37) IU/L ALT (14-63) IU/L Alkaline Phosphatase (46-116) U/L Lactate Dehydrogenase 207 (81-234) U/L Total Protein (6.4-8.2) g/dL Albumin (3.4-5.0) g/dL Globulin (2.0-3.5) g/dL Albumin/Globulin Ratio (1.3-2.8) 01/18/18 01/18/18 01/19/18 Range/Units 11:07 11:07 05:15 INR Sodium 135 L 137 (136-148) mmol/L Potassium 3.8 4.4 (3.5-5.1) mmol/L Chloride 99 99 (98-107) mmol/L Carbon Dioxide 22.0 29.9 (21.0-32.0) mmol/L BUN 12 16 (7.0-18.0) mg/dL Creatinine 1.0 1.2 (0.8-1.3) mg/dL Est Cr Clr Drug Dosing 94.29 78.58 mL/min Estimated GFR (MDRD) > 60.0 > 60.0 ml/min Glucose 172 H 141 H (74-106) mg/dL Hemoglobin A1c 5.2 (4.5-6.2) % Calcium 9.3 9.5 (8.5-10.1) mg/dL Iron (50-175) ug/dL TIBC (250-450) ug/dL % Saturation (20-55) % Ferritin (26-388) ng/mL Total Bilirubin 2.7 H 2.8 H (0.2-1.0) mg/dL GGT (5-85) U/L AST 36 35 (15-37) IU/L ALT 103 H 98 H (14-63) IU/L Alkaline Phosphatase 86 91 (46-116) U/L Lactate Dehydrogenase (81-234) U/L Total Protein 6.4 7.0 (6.4-8.2) g/dL Albumin 3.6 3.4 (3.4-5.0) g/dL Globulin 2.8 3.6 H (2.0-3.5) g/dL Albumin/Globulin Ratio 1.3 0.9 L (1.3-2.8) Med Orders - Current: Current Medications Diazepam (Valium) 2 mg PO BID PRN PRN Reason: Anxiety Last Admin: 01/18/18 22:00 Dose: 2 mg Docusate Sodium (Colace) 100 mg PO DAILY ANALY Last Admin: 01/18/18 08:49 Dose: 100 mg Dextrose/Sodium Chloride (Dextrose 5%-1/2 Ns) 1,000 mls @ 10 mls/hr IV ASDIRECTED ANALY Morphine Sulfate (Morphine Railroad Switchman 30 Mg In 30 Ml) 30 mg IV ASDIRECTED ANALY; Protocol Last Admin: 01/18/18 21:41 Dose: 30 mg Ondansetron HCl (Zofran) 4 mg IVPUSH Q4H PRN PRN Reason: Nausea/Vomiting Oxycodone HCl (Oxycodone) 10 mg PO Q6H PRN PRN Reason: Pain Last Admin: 01/19/18 01:08 Dose: 10 mg Discontinued Medications Bisacodyl (Dulcolax) 10 mg RECTAL ONETIME ONE Stop: 01/17/18 09:49 Last Admin: 01/17/18 10:30 Dose: 10 mg Cyclobenzaprine HCl (Flexeril) 5 mg PO BID PRN PRN Reason: Pain Last Admin: 01/17/18 10:11 Dose: 5 mg Cyclobenzaprine HCl (Flexeril) 10 mg PO BID PRN PRN Reason: Pain Last Admin: 01/17/18 19:47 Dose: 10 mg Diazepam (Valium) 1 mg PO ONETIME ONE Stop: 01/15/18 21:06 Last Admin: 01/15/18 21:13 Dose: 1 mg Diazepam (Valium) 1 mg PO BID PRN PRN Reason: Spasms Last Admin: 01/16/18 08:41 Dose: 1 mg Diazepam (Valium) 1 mg PO Q8H PRN PRN Reason: Spasms Diazepam (Valium) Confirm Administered Dose 2 mg .ROUTE .STK-MED ONE Stop: 01/16/18 23:19 Last Admin: 01/17/18 03:31 Dose: Not Given Diazepam (Valium) 2 mg PO Q12H PRN PRN Reason: Anxiety Hydromorphone HCl (Dilaudid) 1 mg IVPUSH ONETIME ONE Stop: 01/15/18 00:32 Last Admin: 01/15/18 00:35 Dose: 1 mg Hydromorphone HCl (Dilaudid) 1 mg IVPUSH Q4H PRN PRN Reason: Pain Last Admin: 01/15/18 09:29 Dose: 1 mg Hydromorphone HCl (Dilaudid) 2 mg PO Q6H PRN PRN Reason: Pain Hydromorphone HCl (Dilaudid) 2 mg PO Q6H PRN PRN Reason: Pain (moderate 4-6) Last Admin: 01/15/18 19:39 Dose: 2 mg Dextrose/Sodium Chloride (Dextrose 5%-1/2 Ns) 1,000 mls @ 150 mls/hr IV ASDIRECTED ANALY Last Admin: 01/18/18 07:48 Dose: 150 mls/hr Iopamidol (Isovue-370 (76%)) 100 ml IVPUSH ONETIME ONE Stop: 01/15/18 01:59 Last Admin: 01/15/18 02:12 Dose: 100 ml Ketorolac Tromethamine (Toradol) 60 mg IM ONETIME ONE Stop: 01/14/18 23:27 Last Admin: 01/14/18 23:30 Dose: 60 mg Ketorolac Tromethamine (Toradol) 30 mg IVPUSH Q8H PRN PRN Reason: Abdominal Pain Stop: 01/20/18 10:48 Last Admin: 01/15/18 18:17 Dose: 30 mg Morphine Sulfate (Morphine) 3 mg IVPUSH Q4H PRN PRN Reason: Pain Last Admin: 01/16/18 07:33 Dose: 3 mg Morphine Sulfate (Morphine) 3 mg IVPUSH Q3H PRN PRN Reason: Pain Last Admin: 01/17/18 07:18 Dose: 3 mg Morphine Sulfate (Morphine) 10 mg .ROUTE .STK-MED ONE Stop: 01/17/18 09:28 Morphine Sulfate (Morphine) 2 mg IV Q4H PRN PRN Reason: Pain Last Admin: 01/17/18 15:13 Dose: 2 mg Oxycodone HCl (Oxycodone) 5 mg PO Q4H PRN PRN Reason: Pain Last Admin: 01/17/18 07:18 Dose: 5 mg Oxycodone HCl (Oxycodone) 5 mg PO Q6H PRN PRN Reason: Pain Last Admin: 01/17/18 12:48 Dose: 5 mg - Exam General: Alert, Oriented, Mild Distress, Moderate Distress HEENT: Pupils Equal, Pupils Reactive, EOMI, Mucous Membr. Moist/[place], Scleral Icterus Neck: Supple Lungs: Clear to Auscultation, Normal Respiratory Effort, Decreased Breath Sounds Cardiovascular: Regular Rate, Regular Rhythm GI/Abdominal Exam: Normal Bowel Sounds, Soft, Non-Tender, No Distention, Other ( negative murphys sign) Back Exam: Normal Inspection Extremities: Normal Inspection, No Pedal Edema, Normal Capillary Refill Skin: Warm, Dry, Intact Neurological: No New Focal Deficit Psy/Mental Status: Alert Consult PN Assessment/Plan Procedures: Procedures POLYSOM 6/>YRS CPAP 4/> PARM (08/15/17) Problem List Initiated/Reviewed/Updated: Yes My Orders Last 24 Hours: My Active Orders 01/18/18 10:10 Consult to Physical Therapy [PT Evaluation and Treatment] [CONS] Routine 01/18/18 11:07 HEPATITIS B SURF AB QUANT [REF] Routine HEPATITIS PANEL (4) [REF] Routine 01/18/18 12:26 oxyCODONE 10 mg PO Q6H PRN 01/19/18 08:00 Abdomen Ltd [US] Routine 01/20/18 05:11 COMPREHENSIVE METABOLIC PN,CMP [CHEM] AM 01/21/18 05:11 COMPREHENSIVE METABOLIC PN,CMP [CHEM] AM Plan: #Multiple Rib Fractures, Left ribs 5-9, minimally displaced -patient states symptoms improving overall but still having intermittent spikes of sever pain - use of JOY LOADING MACHINE OPERATOR pump since starting PO oxycodone -PT consulted -continue Morphine JOY LOADING MACHINE OPERATOR -continue Oxycodone 10 mg PO QID PRN pain -continue to monitor O2 #elevated BP without history of HTN, improving -no indication for medical therapy at this time -continue to monitor #Hyperbilirubinemia, worsening #Elevated LFT, improving #elevated GGT #Fatty Liver, on CT #Alcohol Use Disorder -patient asymptomatic, tolerating po intake, no signs of decompensation -RUQ ordered -continue to monitor #Splenomegaly, on CT -differential includes chronic liver disease vs inflammatory reaction to overlying rib fractures -plan as per above
[2018-01-19] MEDS ORDERED: Bisacodyl 10 MG Supp RECTAL ONE (09:01)
--- NOTE | 2018-01-19 09:22 | PCM.SURGPN ---
- General Info Date of Service: 01/19/18 Functional Status: Reports: Pain Controlled - Patient Data Vitals - Most Recent: Last Vital Signs Temp 97.3 F 01/19/18 08:27 Pulse 119 H 01/19/18 08:27 Resp 20 01/19/18 08:27 BP 181/106 H 01/19/18 08:27 Pulse Ox 96 01/19/18 08:27 Weight - Most Recent: 246 lb I&O - Last 24 Hours: Intake & Output 01/18/18 01/19/18 01/19/18 22:59 06:59 14:59 Intake Total 596 Output Total 1000 Balance -404 Lab Results Last 24 Hrs: Laboratory Results - last 24 hr 01/18/18 01/18/18 01/18/18 Range/Units 11:07 11:07 11:07 INR 1.04 Sodium (136-148) mmol/L Potassium (3.5-5.1) mmol/L Chloride (98-107) mmol/L Carbon Dioxide (21.0-32.0) mmol/L BUN (7.0-18.0) mg/dL Creatinine (0.8-1.3) mg/dL Est Cr Clr Drug Dosing mL/min Estimated GFR (MDRD) ml/min Glucose (74-106) mg/dL Hemoglobin A1c (4.5-6.2) % Calcium (8.5-10.1) mg/dL Iron 45 L (50-175) ug/dL TIBC 241 L (250-450) ug/dL % Saturation 18.67 L (20-55) % Ferritin 457 H (26-388) ng/mL Total Bilirubin (0.2-1.0) mg/dL GGT 160 H (5-85) U/L AST (15-37) IU/L ALT (14-63) IU/L Alkaline Phosphatase (46-116) U/L Lactate Dehydrogenase 207 (81-234) U/L Total Protein (6.4-8.2) g/dL Albumin (3.4-5.0) g/dL Globulin (2.0-3.5) g/dL Albumin/Globulin Ratio (1.3-2.8) 01/18/18 01/18/18 01/19/18 Range/Units 11:07 11:07 05:15 INR Sodium 135 L 137 (136-148) mmol/L Potassium 3.8 4.4 (3.5-5.1) mmol/L Chloride 99 99 (98-107) mmol/L Carbon Dioxide 22.0 29.9 (21.0-32.0) mmol/L BUN 12 16 (7.0-18.0) mg/dL Creatinine 1.0 1.2 (0.8-1.3) mg/dL Est Cr Clr Drug Dosing 94.29 78.58 mL/min Estimated GFR (MDRD) > 60.0 > 60.0 ml/min Glucose 172 H 141 H (74-106) mg/dL Hemoglobin A1c 5.2 (4.5-6.2) % Calcium 9.3 9.5 (8.5-10.1) mg/dL Iron (50-175) ug/dL TIBC (250-450) ug/dL % Saturation (20-55) % Ferritin (26-388) ng/mL Total Bilirubin 2.7 H 2.8 H (0.2-1.0) mg/dL GGT (5-85) U/L AST 36 35 (15-37) IU/L ALT 103 H 98 H (14-63) IU/L Alkaline Phosphatase 86 91 (46-116) U/L Lactate Dehydrogenase (81-234) U/L Total Protein 6.4 7.0 (6.4-8.2) g/dL Albumin 3.6 3.4 (3.4-5.0) g/dL Globulin 2.8 3.6 H (2.0-3.5) g/dL Albumin/Globulin Ratio 1.3 0.9 L (1.3-2.8) Med Orders - Current: Current Medications Diazepam (Valium) 2 mg PO BID PRN PRN Reason: Anxiety Last Admin: 01/18/18 22:00 Dose: 2 mg Docusate Sodium (Colace) 100 mg PO DAILY ANALY Last Admin: 01/18/18 08:49 Dose: 100 mg Dextrose/Sodium Chloride (Dextrose 5%-1/2 Ns) 1,000 mls @ 10 mls/hr IV ASDIRECTED ANALY Morphine Sulfate (Morphine Script Supervisor 30 Mg In 30 Ml) 30 mg IV ASDIRECTED ANALY; Protocol Last Admin: 01/18/18 21:41 Dose: 30 mg Ondansetron HCl (Zofran) 4 mg IVPUSH Q4H PRN PRN Reason: Nausea/Vomiting Oxycodone HCl (Oxycodone) 10 mg PO Q6H PRN PRN Reason: Pain Last Admin: 01/19/18 01:08 Dose: 10 mg Discontinued Medications Bisacodyl (Dulcolax) 10 mg RECTAL ONETIME ONE Stop: 01/17/18 09:49 Last Admin: 01/17/18 10:30 Dose: 10 mg Bisacodyl (Dulcolax) 10 mg RECTAL ONETIME ONE Stop: 01/19/18 09:02 Cyclobenzaprine HCl (Flexeril) 5 mg PO BID PRN PRN Reason: Pain Last Admin: 01/17/18 10:11 Dose: 5 mg Cyclobenzaprine HCl (Flexeril) 10 mg PO BID PRN PRN Reason: Pain Last Admin: 01/17/18 19:47 Dose: 10 mg Diazepam (Valium) 1 mg PO ONETIME ONE Stop: 01/15/18 21:06 Last Admin: 01/15/18 21:13 Dose: 1 mg Diazepam (Valium) 1 mg PO BID PRN PRN Reason: Spasms Last Admin: 01/16/18 08:41 Dose: 1 mg Diazepam (Valium) 1 mg PO Q8H PRN PRN Reason: Spasms Diazepam (Valium) Confirm Administered Dose 2 mg .ROUTE .STK-MED ONE Stop: 01/16/18 23:19 Last Admin: 01/17/18 03:31 Dose: Not Given Diazepam (Valium) 2 mg PO Q12H PRN PRN Reason: Anxiety Hydromorphone HCl (Dilaudid) 1 mg IVPUSH ONETIME ONE Stop: 01/15/18 00:32 Last Admin: 01/15/18 00:35 Dose: 1 mg Hydromorphone HCl (Dilaudid) 1 mg IVPUSH Q4H PRN PRN Reason: Pain Last Admin: 01/15/18 09:29 Dose: 1 mg Hydromorphone HCl (Dilaudid) 2 mg PO Q6H PRN PRN Reason: Pain Hydromorphone HCl (Dilaudid) 2 mg PO Q6H PRN PRN Reason: Pain (moderate 4-6) Last Admin: 01/15/18 19:39 Dose: 2 mg Dextrose/Sodium Chloride (Dextrose 5%-1/2 Ns) 1,000 mls @ 150 mls/hr IV ASDIRECTED ANALY Last Admin: 01/18/18 07:48 Dose: 150 mls/hr Iopamidol (Isovue-370 (76%)) 100 ml IVPUSH ONETIME ONE Stop: 01/15/18 01:59 Last Admin: 01/15/18 02:12 Dose: 100 ml Ketorolac Tromethamine (Toradol) 60 mg IM ONETIME ONE Stop: 01/14/18 23:27 Last Admin: 01/14/18 23:30 Dose: 60 mg Ketorolac Tromethamine (Toradol) 30 mg IVPUSH Q8H PRN PRN Reason: Abdominal Pain Stop: 01/20/18 10:48 Last Admin: 01/15/18 18:17 Dose: 30 mg Morphine Sulfate (Morphine) 3 mg IVPUSH Q4H PRN PRN Reason: Pain Last Admin: 01/16/18 07:33 Dose: 3 mg Morphine Sulfate (Morphine) 3 mg IVPUSH Q3H PRN PRN Reason: Pain Last Admin: 01/17/18 07:18 Dose: 3 mg Morphine Sulfate (Morphine) 10 mg .ROUTE .STK-MED ONE Stop: 01/17/18 09:28 Morphine Sulfate (Morphine) 2 mg IV Q4H PRN PRN Reason: Pain Last Admin: 01/17/18 15:13 Dose: 2 mg Oxycodone HCl (Oxycodone) 5 mg PO Q4H PRN PRN Reason: Pain Last Admin: 01/17/18 07:18 Dose: 5 mg Oxycodone HCl (Oxycodone) 5 mg PO Q6H PRN PRN Reason: Pain Last Admin: 01/17/18 12:48 Dose: 5 mg - Exam General: Alert, Oriented Lungs: Normal Respiratory Effort GI/Abdominal Exam: No Distention (no bm X 2 days) - Problem List Review Problem List Initiated/Reviewed/Updated: Yes - My Orders Last 24 Hours: Active Orders 24 hr Category Date Time Status Notify Provider Consults [RC] ASDIRECTED Care 01/18/18 10:20 Active Consult to Physical Therapy [PT Evaluation and Cons 01/18/18 10:10 Active Treatment] [CONS] Routine Consult to Physical Therapy [PT Evaluation and Cons 01/18/18 10:20 Active Treatment] [CONS] Routine Consult to Physician [CONS] Routine Cons 01/18/18 10:19 Active Abdomen Ltd [US] Routine Exams 01/19/18 08:00 Taken COMPREHENSIVE METABOLIC PN,CMP [CHEM] AM Lab 01/20/18 05:11 Ordered COMPREHENSIVE METABOLIC PN,CMP [CHEM] AM Lab 01/21/18 05:11 Ordered HEPATITIS B SURF AB QUANT [REF] Routine Lab 01/18/18 11:07 Received HEPATITIS PANEL (4) [REF] Routine Lab 01/18/18 11:07 Received Dextrose 5%-0.45% NaCl [Dextrose 5%-1/2 NS] 1,000 ml Med 01/18/18 15:15 Active IV ASDIRECTED oxyCODONE Med 01/18/18 12:26 Active 10 mg PO Q6H PRN Medication Orders Diazepam (Valium) 2 mg PO BID PRN PRN Reason: Anxiety Last Admin: 01/18/18 22:00 Dose: 2 mg Admin: 01/18/18 05:23 Dose: 2 mg Admin: 01/17/18 17:39 Dose: 2 mg Docusate Sodium (Colace) 100 mg PO DAILY ANALY Last Admin: 01/18/18 08:49 Dose: 100 mg Admin: 01/17/18 10:11 Dose: 100 mg Admin: 01/16/18 08:43 Dose: 100 mg Dextrose/Sodium Chloride (Dextrose 5%-1/2 Ns) 1,000 mls @ 10 mls/hr IV ASDIRECTED ANALY Morphine Sulfate (Morphine Script Supervisor 30 Mg In 30 Ml) 30 mg IV ASDIRECTED ANALY; Protocol Last Admin: 01/18/18 21:41 Dose: 30 mg Admin: 01/18/18 06:09 Dose: 30 mg Admin: 01/17/18 17:22 Dose: 30 mg Ondansetron HCl (Zofran) 4 mg IVPUSH Q4H PRN PRN Reason: Nausea/Vomiting Oxycodone HCl (Oxycodone) 10 mg PO Q6H PRN PRN Reason: Pain Last Admin: 01/19/18 01:08 Dose: 10 mg Admin: 01/18/18 19:12 Dose: 10 mg Admin: 01/18/18 12:35 Dose: 10 mg - Assessment Assessment (Free Text/Narrative):: pain much better controlled, hope to dc bin tripper operator today or tomorrow; continue PT; dulcolax 10 mg pr; it is not clear whether pt is a big time alcohol drinker or small time alcohol drinker to a nondrinker, h/p is unclear. 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
[2018-01-19] MEDS: Docusate Sodium 100 MG Cap PO SCH (09:25)
--- NOTE | 2018-01-19 10:06 | US ---
EXAMINATION: Right upper quadrant ultrasound HISTORY: Elevated bilirubin COMPARISON: CT dated 01/15/2018 TECHNIQUE: Grayscale and color Doppler imaging obtained of the right upper quadrant. FINDINGS: The pancreas is not well characterized. The gallbladder wall thickness is normal. No perich olecystic fluid or shadowing gallstones. Common bile duct not well visualized however not dilated. Th e visualized liver is echogenic no focal hepatic mass identified. Right kidney measures at least 10.8 cm [id number] without evidence of hydronephrosis. IMPRESSION: 1. Fatty infiltration of the liver.
[2018-01-19] MEDS: oxyCODONE 5 MG Tab PO SCH ×3 (11:56→23:06)
[2018-01-19] MEDS: Morphine PF 30 MG/30 ML PCA Vial IV SCH ×2 (17:21→20:12)
[2018-01-20] MEDS: oxyCODONE 5 MG Tab PO SCH ×4 (04:32→22:26)
[2018-01-20] MEDS: Diazepam 2 MG Tab PO PRN ×2 (04:38→05:38)
[2018-01-20 05:55] LABS: CHLORIDE,CL 100 mmol/L (98-107); SODIUM,NA 134 mmol/L (136-148)
[2018-01-20] MEDS: Morphine PF 30 MG/30 ML PCA Vial IV SCH (06:36)
[2018-01-20] MEDS: Docusate Sodium 100 MG Cap PO SCH (09:45)
--- NOTE | 2018-01-20 11:14 | PCM.CONSN ---
- General Info Date of Service: 01/20/18 Admission Dx/Problem (Free Text): Admission Diagnosis/Problem Admission Diagnosis/Problem Trauma of chest Functional Status: Reports: Tolerating Diet, Ambulating, Urinating - Review of Systems General: Reports: No Symptoms HEENT: Reports: No Symptoms Pulmonary: Reports: No Symptoms Cardiovascular: Reports: No Symptoms Gastrointestinal: Reports: No Symptoms Genitourinary: Reports: No Symptoms Musculoskeletal: Reports: Other (rib pain ) Skin: Reports: No Symptoms Neurological: Reports: No Symptoms Psychiatric: Reports: No Symptoms - Patient Data Vitals - Most Recent: Last Vital Signs Temp 36.6 C 01/20/18 05:00 Pulse 89 01/20/18 05:00 Resp 20 01/20/18 05:00 BP 148/92 H 01/20/18 05:00 Pulse Ox 94 L 01/20/18 05:00 Weight - Most Recent: 111.584 kg I&O - Last 24 Hours: Intake & Output 01/19/18 01/20/18 01/20/18 22:59 06:59 14:59 Intake Total 1000 990 Output Total 900 Balance 1000 90 Lab Results Last 24 Hours: Laboratory Results - last 24 hr 01/18/18 01/18/18 01/20/18 Range/Units 11:07 11:07 05:20 Sodium 134 L (136-148) mmol/L Potassium 4.2 (3.5-5.1) mmol/L Chloride 100 (98-107) mmol/L Carbon Dioxide 30.3 (21.0-32.0) mmol/L BUN 19 H (7.0-18.0) mg/dL Creatinine 1.1 (0.8-1.3) mg/dL Est Cr Clr Drug Dosing 85.72 mL/min Estimated GFR (MDRD) > 60.0 ml/min Glucose 132 H (74-106) mg/dL Calcium 8.9 (8.5-10.1) mg/dL Total Bilirubin 2.1 H (0.2-1.0) mg/dL AST 33 (15-37) IU/L ALT 85 H (14-63) IU/L Alkaline Phosphatase 86 (46-116) U/L Total Protein 6.3 L (6.4-8.2) g/dL Albumin 3.0 L (3.4-5.0) g/dL Globulin 3.3 (2.0-3.5) g/dL Albumin/Globulin Ratio 0.9 L (1.3-2.8) Hepatitis A IgM Ab Negative (Negative) Hep Bs Antigen Negative (Negative) Hep Bs Antibody, Quant <3.1 L (Immunity>9.9) mIU/mL Hep B Core IgM Ab Negative (Negative) Hepatitis C Antibody <0.1 (0.0-0.9) s/co ratio Med Orders - Current: Current Medications Diazepam (Valium) 2 mg PO BID PRN PRN Reason: Anxiety Last Admin: 01/20/18 05:38 Dose: 2 mg Docusate Sodium (Colace) 100 mg PO DAILY ANALY Last Admin: 01/20/18 09:45 Dose: 100 mg Dextrose/Sodium Chloride (Dextrose 5%-1/2 Ns) 1,000 mls @ 10 mls/hr IV ASDIRECTED ANALY Morphine Sulfate (Morphine Yard Motor Operator 30 Mg In 30 Ml) 30 mg IV ASDIRECTED ANALY; Protocol Last Admin: 01/20/18 06:36 Dose: 30 mg Ondansetron HCl (Zofran) 4 mg IVPUSH Q4H PRN PRN Reason: Nausea/Vomiting Oxycodone HCl (Oxycodone) 10 mg PO Q6H ANALY Last Admin: 01/20/18 10:54 Dose: 10 mg Discontinued Medications Bisacodyl (Dulcolax) 10 mg RECTAL ONETIME ONE Stop: 01/17/18 09:49 Last Admin: 01/17/18 10:30 Dose: 10 mg Bisacodyl (Dulcolax) 10 mg RECTAL ONETIME ONE Stop: 01/19/18 09:02 Last Admin: 01/19/18 09:27 Dose: 10 mg Cyclobenzaprine HCl (Flexeril) 5 mg PO BID PRN PRN Reason: Pain Last Admin: 01/17/18 10:11 Dose: 5 mg Cyclobenzaprine HCl (Flexeril) 10 mg PO BID PRN PRN Reason: Pain Last Admin: 01/17/18 19:47 Dose: 10 mg Diazepam (Valium) 1 mg PO ONETIME ONE Stop: 01/15/18 21:06 Last Admin: 01/15/18 21:13 Dose: 1 mg Diazepam (Valium) 1 mg PO BID PRN PRN Reason: Spasms Last Admin: 01/16/18 08:41 Dose: 1 mg Diazepam (Valium) 1 mg PO Q8H PRN PRN Reason: Spasms Diazepam (Valium) Confirm Administered Dose 2 mg .ROUTE .STK-MED ONE Stop: 01/16/18 23:19 Last Admin: 01/17/18 03:31 Dose: Not Given Diazepam (Valium) 2 mg PO Q12H PRN PRN Reason: Anxiety Hydromorphone HCl (Dilaudid) 1 mg IVPUSH ONETIME ONE Stop: 01/15/18 00:32 Last Admin: 01/15/18 00:35 Dose: 1 mg Hydromorphone HCl (Dilaudid) 1 mg IVPUSH Q4H PRN PRN Reason: Pain Last Admin: 01/15/18 09:29 Dose: 1 mg Hydromorphone HCl (Dilaudid) 2 mg PO Q6H PRN PRN Reason: Pain Hydromorphone HCl (Dilaudid) 2 mg PO Q6H PRN PRN Reason: Pain (moderate 4-6) Last Admin: 01/15/18 19:39 Dose: 2 mg Dextrose/Sodium Chloride (Dextrose 5%-1/2 Ns) 1,000 mls @ 150 mls/hr IV ASDIRECTED ANALY Last Admin: 01/18/18 07:48 Dose: 150 mls/hr Iopamidol (Isovue-370 (76%)) 100 ml IVPUSH ONETIME ONE Stop: 01/15/18 01:59 Last Admin: 01/15/18 02:12 Dose: 100 ml Ketorolac Tromethamine (Toradol) 60 mg IM ONETIME ONE Stop: 01/14/18 23:27 Last Admin: 01/14/18 23:30 Dose: 60 mg Ketorolac Tromethamine (Toradol) 30 mg IVPUSH Q8H PRN PRN Reason: Abdominal Pain Stop: 01/20/18 10:48 Last Admin: 01/15/18 18:17 Dose: 30 mg Morphine Sulfate (Morphine) 3 mg IVPUSH Q4H PRN PRN Reason: Pain Last Admin: 01/16/18 07:33 Dose: 3 mg Morphine Sulfate (Morphine) 3 mg IVPUSH Q3H PRN PRN Reason: Pain Last Admin: 01/17/18 07:18 Dose: 3 mg Morphine Sulfate (Morphine) 10 mg .ROUTE .STK-MED ONE Stop: 01/17/18 09:28 Morphine Sulfate (Morphine) 2 mg IV Q4H PRN PRN Reason: Pain Last Admin: 01/17/18 15:13 Dose: 2 mg Oxycodone HCl (Oxycodone) 5 mg PO Q4H PRN PRN Reason: Pain Last Admin: 01/17/18 07:18 Dose: 5 mg Oxycodone HCl (Oxycodone) 5 mg PO Q6H PRN PRN Reason: Pain Last Admin: 01/17/18 12:48 Dose: 5 mg Oxycodone HCl (Oxycodone) 10 mg PO Q6H PRN PRN Reason: Pain Last Admin: 01/19/18 09:24 Dose: 10 mg - Exam General: Alert, Oriented, Mild Distress HEENT: Pupils Equal, Pupils Reactive, EOMI, Mucous Membr. Moist/[place] Neck: Supple Lungs: Clear to Auscultation, Normal Respiratory Effort Cardiovascular: Regular Rate, Regular Rhythm GI/Abdominal Exam: Normal Bowel Sounds, Soft, Non-Tender Extremities: Normal Inspection, Normal Range of Motion, Non-Tender, No Pedal Edema, Normal Capillary Refill Skin: Warm, Dry, Intact Psy/Mental Status: Alert, Normal Affect, Normal Mood Consult PN Assessment/Plan Procedures: Procedures POLYSOM 6/>YRS CPAP 4/> PARM (08/15/17) Problem List Initiated/Reviewed/Updated: Yes My Orders Last 24 Hours: My Active Orders 01/19/18 11:15 oxyCODONE 10 mg PO Q6H 01/21/18 05:11 COMPREHENSIVE METABOLIC PN,CMP [CHEM] AM Plan: #Multiple Rib Fractures, Left ribs 5-9, minimally displaced -patient states pain is still continuous and 10/10 intensity -currently on Oxycodone 10 mg Q6H scheduled and Morphine MANAGER SHELL pump -suspicion of underlying psychosomatic disorder Plan: -start Fentanyl 25 mcg -continue Oxycodone 10 mg PO QID PRN pain -continue Morphine MANAGER SHELL - goal to discontinue if improved pain after 24 hours of Fentnyl use -consider discharge to SNF for rehab once able to DC MANAGER SHELL pump -continue to monitor O2 #Elevated BP without history of HTN, likely secondary to pain -no indication for Anti-Hypertensive therapy at this time -continue to monitor #Hyperbilirubinemia, improving #Elevated LFT, improving #elevated GGT #Fatty Liver, on CT #Alcohol Use Disorder -tolerating po intake, no jaundice, no signs of decompensation, barron sign negative -RUQ US negative for stones or CBD dilation -discuss need for MRCP with surgery #Splenomegaly, on CT -differential includes chronic liver disease vs inflammatory reaction to overlying rib fractures -plan as per above
[2018-01-20] MEDS ORDERED: fentaNYL 25 MCG/HR Transdermal Patch TRDERM SCH (12:15)
[2018-01-20] MEDS ORDERED: Morphine PF 30 MG/30 ML PCA Vial IV SCH (14:45)
--- NOTE | 2018-01-20 15:05 | PCM.SURGPN ---
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, on 40 oxy, and start fentenyl patch today) - Patient Data Vitals - Most Recent: Last Vital Signs Temp 97.5 F 01/20/18 12:00 Pulse 105 H 01/20/18 12:00 Resp 18 01/20/18 12:00 BP 136/88 01/20/18 12:00 Pulse Ox 94 L 01/20/18 12:00 Weight - Most Recent: 246 lb I&O - Last 24 Hours: Intake & Output 01/20/18 01/20/18 01/20/18 06:59 14:59 22:59 Intake Total 990 Output Total 900 Balance 90 Lab Results Last 24 Hrs: Laboratory Results - last 24 hr 01/18/18 01/18/18 01/20/18 Range/Units 11:07 11:07 05:20 Sodium 134 L (136-148) mmol/L Potassium 4.2 (3.5-5.1) mmol/L Chloride 100 (98-107) mmol/L Carbon Dioxide 30.3 (21.0-32.0) mmol/L BUN 19 H (7.0-18.0) mg/dL Creatinine 1.1 (0.8-1.3) mg/dL Est Cr Clr Drug Dosing 85.72 mL/min Estimated GFR (MDRD) > 60.0 ml/min Glucose 132 H (74-106) mg/dL Calcium 8.9 (8.5-10.1) mg/dL Total Bilirubin 2.1 H (0.2-1.0) mg/dL AST 33 (15-37) IU/L ALT 85 H (14-63) IU/L Alkaline Phosphatase 86 (46-116) U/L Total Protein 6.3 L (6.4-8.2) g/dL Albumin 3.0 L (3.4-5.0) g/dL Globulin 3.3 (2.0-3.5) g/dL Albumin/Globulin Ratio 0.9 L (1.3-2.8) Hepatitis A IgM Ab Negative (Negative) Hep Bs Antigen Negative (Negative) Hep Bs Antibody, Quant <3.1 L (Immunity>9.9) mIU/mL Hep B Core IgM Ab Negative (Negative) Hepatitis C Antibody <0.1 (0.0-0.9) s/co ratio Med Orders - Current: Current Medications Diazepam (Valium) 2 mg PO BID PRN PRN Reason: Anxiety Last Admin: 01/20/18 05:38 Dose: 2 mg Docusate Sodium (Colace) 100 mg PO DAILY [facility] Last Admin: 01/20/18 09:45 Dose: 100 mg Fentanyl (Duragesic) 25 mcg TRDERM Q72H [facility] Last Admin: 01/20/18 12:54 Dose: 25 mcg Dextrose/Sodium Chloride (Dextrose 5%-1/2 Ns) 1,000 mls @ 10 mls/hr IV ASDIRECTED [facility]NA[facility] Morphine Sulfate (Morphine Software Engineering Specialist 30 Mg In 30 Ml) 30 mg IV ASDIRECTED [facility]NA[facility]; Protocol Ondansetron HCl (Zofran) 4 mg IVPUSH Q4H PRN PRN Reason: Nausea/Vomiting Oxycodone HCl (Oxycodone) 10 mg PO Q6H [facility]NA[facility] Last Admin: 01/20/18 10:54 Dose: 10 mg Discontinued Medications Bisacodyl (Dulcolax) 10 mg RECTAL ONETIME ONE Stop: 01/17/18 09:49 Last Admin: 01/17/18 10:30 Dose: 10 mg Bisacodyl (Dulcolax) 10 mg RECTAL ONETIME ONE Stop: 01/19/18 09:02 Last Admin: 01/19/18 09:27 Dose: 10 mg Cyclobenzaprine HCl (Flexeril) 5 mg PO BID PRN PRN Reason: Pain Last Admin: 01/17/18 10:11 Dose: 5 mg Cyclobenzaprine HCl (Flexeril) 10 mg PO BID PRN PRN Reason: Pain Last Admin: 01/17/18 19:47 Dose: 10 mg Diazepam (Valium) 1 mg PO ONETIME ONE Stop: 01/15/18 21:06 Last Admin: 01/15/18 21:13 Dose: 1 mg Diazepam (Valium) 1 mg PO BID PRN PRN Reason: Spasms Last Admin: 01/16/18 08:41 Dose: 1 mg Diazepam (Valium) 1 mg PO Q8H PRN PRN Reason: Spasms Diazepam (Valium) Confirm Administered Dose 2 mg .ROUTE .STK-MED ONE Stop: 01/16/18 23:19 Last Admin: 01/17/18 03:31 Dose: Not Given Diazepam (Valium) 2 mg PO Q12H PRN PRN Reason: Anxiety Hydromorphone HCl (Dilaudid) 1 mg IVPUSH ONETIME ONE Stop: 01/15/18 00:32 Last Admin: 01/15/18 00:35 Dose: 1 mg Hydromorphone HCl (Dilaudid) 1 mg IVPUSH Q4H PRN PRN Reason: Pain Last Admin: 01/15/18 09:29 Dose: 1 mg Hydromorphone HCl (Dilaudid) 2 mg PO Q6H PRN PRN Reason: Pain Hydromorphone HCl (Dilaudid) 2 mg PO Q6H PRN PRN Reason: Pain (moderate 4-6) Last Admin: 01/15/18 19:39 Dose: 2 mg Dextrose/Sodium Chloride (Dextrose 5%-1/2 Ns) 1,000 mls @ 150 mls/hr IV ASDIRECTED [facility] Last Admin: 01/18/18 07:48 Dose: 150 mls/hr Iopamidol (Isovue-370 (76%)) 100 ml IVPUSH ONETIME ONE Stop: 01/15/18 01:59 Last Admin: 01/15/18 02:12 Dose: 100 ml Ketorolac Tromethamine (Toradol) 60 mg IM ONETIME ONE Stop: 01/14/18 23:27 Last Admin: 01/14/18 23:30 Dose: 60 mg Ketorolac Tromethamine (Toradol) 30 mg IVPUSH Q8H PRN PRN Reason: Abdominal Pain Stop: 01/20/18 10:48 Last Admin: 01/15/18 18:17 Dose: 30 mg Morphine Sulfate (Morphine) 3 mg IVPUSH Q4H PRN PRN Reason: Pain Last Admin: 01/16/18 07:33 Dose: 3 mg Morphine Sulfate (Morphine) 3 mg IVPUSH Q3H PRN PRN Reason: Pain Last Admin: 01/17/18 07:18 Dose: 3 mg Morphine Sulfate (Morphine) 10 mg .ROUTE .STK-MED ONE Stop: 01/17/18 09:28 Morphine Sulfate (Morphine) 2 mg IV Q4H PRN PRN Reason: Pain Last Admin: 01/17/18 15:13 Dose: 2 mg Morphine Sulfate (Morphine Software Engineering Specialist 30 Mg In 30 Ml) 30 mg IV ASDIRECTED ANALY; Protocol Last Admin: 01/20/18 06:36 Dose: 30 mg Oxycodone HCl (Oxycodone) 5 mg PO Q4H PRN PRN Reason: Pain Last Admin: 01/17/18 07:18 Dose: 5 mg Oxycodone HCl (Oxycodone) 5 mg PO Q6H PRN PRN Reason: Pain Last Admin: 01/17/18 12:48 Dose: 5 mg Oxycodone HCl (Oxycodone) 10 mg PO Q6H PRN PRN Reason: Pain Last Admin: 01/19/18 09:24 Dose: 10 mg - Exam Lungs: Clear to Auscultation GI/Abdominal Exam: Normal Bowel Sounds - Problem List Review Problem List Initiated/Reviewed/Updated: Yes - My Orders Last 24 Hours: Active Orders 24 hr Category Date Time Status Communication Order [RC] STAT Care 01/20/18 14:38 Active Notify Provider [RC] PRN Care 01/20/18 14:38 Active Pulse Oximetry [RC] CONTINUOUS Care 01/20/18 14:38 Active COMPREHENSIVE METABOLIC PN,CMP [CHEM] AM Lab 01/21/18 05:11 Ordered Morphine PF [Morphine VASCULAR RADIOLOGIST 30 MG in 30 ML] Med 01/20/18 14:45 Active 30 mg IV ASDIRECTED fentaNYL [Duragesic] Med 01/20/18 12:15 Active 25 mcg TRDERM Q72H Medication Discontinuation Instructions [OM.PC] Stat Oth 01/20/18 14:38 Ordered Medication Orders Diazepam (Valium) 2 mg PO BID PRN PRN Reason: Anxiety Last Admin: 01/20/18 05:38 Dose: 2 mg Admin: 01/18/18 22:00 Dose: 2 mg Admin: 01/18/18 05:23 Dose: 2 mg Admin: 01/17/18 17:39 Dose: 2 mg Docusate Sodium (Colace) 100 mg PO DAILY [facility] Last Admin: 01/20/18 09:45 Dose: 100 mg Admin: 01/19/18 09:25 Dose: 100 mg Admin: 01/18/18 08:49 Dose: 100 mg Admin: 01/17/18 10:11 Dose: 100 mg Admin: 01/16/18 08:43 Dose: 100 mg Fentanyl (Duragesic) 25 mcg TRDERM Q72H [facility] Last Admin: 01/20/18 12:54 Dose: 25 mcg Dextrose/Sodium Chloride (Dextrose 5%-1/2 Ns) 1,000 mls @ 10 mls/hr IV ASDIRECTED [facility] Morphine Sulfate (Morphine Software Engineering Specialist 30 Mg In 30 Ml) 30 mg IV ASDIRECTED [facility]; Protocol Ondansetron HCl (Zofran) 4 mg IVPUSH Q4H PRN PRN Reason: Nausea/Vomiting Oxycodone HCl (Oxycodone) 10 mg PO Q6H [facility] Last Admin: 01/20/18 10:54 Dose: 10 mg Admin: 01/20/18 04:32 Dose: 10 mg Admin: 01/19/18 23:06 Dose: 10 mg Admin: 01/19/18 17:26 Dose: 10 mg Admin: 01/19/18 11:56 Dose: 10 mg - Assessment Assessment (Free Text/Narrative):: start fentenyl patch today, repair welder down to 6 mg q 4 hr; skin tape ons, muscle relaxant, and valium; pt eating, walking, and afebrile, pt is ready for rehab tomorrow; if dc, fu w nd 2 - 3 wks - Plan Plan (Free Text/Narrative):: start fentenyl patch today, repair welder down to 6 mg q 4 hr; skin tape ons, muscle relaxant, and valium; pt eating, walking, and afebrile, pt is ready for rehab tomorrow; if dc, fu w nd 2 - 3 wks
[2018-01-21] MEDS: oxyCODONE 5 MG Tab PO SCH ×2 (04:57→10:47)
[2018-01-21 06:57] LABS: CHLORIDE,CL 100 mmol/L (98-107); SODIUM,NA 135 mmol/L (136-148)
--- NOTE | 2018-01-21 07:48 | PCM.CONSN ---
- General Info Date of Service: 01/21/18 Admission Dx/Problem (Free Text): Admission Diagnosis/Problem Admission Diagnosis/Problem Trauma of chest Subjective Update: Patient states pain is improving. He states if he sits up in chair he does fine and pain worses when he is in supine position. Denies sob, nausea, vomiting, diarrhea, abdominal pain. Functional Status: Reports: Tolerating Diet, Ambulating, Urinating - Review of Systems General: Reports: No Symptoms HEENT: Reports: No Symptoms Pulmonary: Reports: No Symptoms Cardiovascular: Reports: No Symptoms Gastrointestinal: Reports: No Symptoms Genitourinary: Reports: No Symptoms Musculoskeletal: Reports: Other (rib pain) Skin: Reports: No Symptoms Neurological: Reports: No Symptoms Psychiatric: Reports: No Symptoms - Patient Data Vitals - Most Recent: Last Vital Signs Temp 36.6 C 01/21/18 04:00 Pulse 90 01/21/18 04:00 Resp 20 01/21/18 04:00 BP 128/80 01/21/18 04:00 Pulse Ox 90 L 01/21/18 04:00 Weight - Most Recent: 111.584 kg I&O - Last 24 Hours: Intake & Output 01/20/18 01/21/18 01/21/18 22:59 06:59 14:59 Intake Total 2122 1126 Output Total 0 Balance 2122 1126 Lab Results Last 24 Hours: Laboratory Results - last 24 hr 01/18/18 01/18/18 01/21/18 Range/Units 11:07 11:07 05:53 WBC (4.0-11.0) K/uL RBC (4.50-5.90) M/uL Hgb (13.0-17.0) g/dL Hct (38.0-50.0) % MCV (80.0-98.0) fL MCH (27.0-32.0) pg MCHC (31.0-37.0) g/dL RDW Std Deviation (28.0-62.0) fl RDW Coeff of Sylvia (11.0-15.0) % Plt Count (150-400) K/uL MPV (7.40-12.00) fL Neut % (Auto) (48.0-80.0) % Lymph % (Auto) (16.0-40.0) % [place] % (Auto) (0.0-15.0) % Eos % (Auto) (0.0-7.0) % Baso % (Auto) (0.0-1.5) % Neut # (Auto) (1.4-5.7) K/uL Lymph # (Auto) (0.6-2.4) K/uL [place] # (Auto) (0.0-0.8) K/uL Eos # (Auto) (0.0-0.7) K/uL Baso # (Auto) (0.0-0.1) K/uL Nucleated RBC % /100WBC Nucleated RBCs # K/uL Sodium 135 L (136-148) mmol/L Potassium 4.3 (3.5-5.1) mmol/L Chloride 100 (98-107) mmol/L Carbon Dioxide 29.8 (21.0-32.0) mmol/L BUN 20 H (7.0-18.0) mg/dL Creatinine 1.1 (0.8-1.3) mg/dL Est Cr Clr Drug Dosing 85.72 mL/min Estimated GFR (MDRD) > 60.0 ml/min Glucose 137 H (74-106) mg/dL Calcium 9.7 (8.5-10.1) mg/dL Total Bilirubin 2.1 H (0.2-1.0) mg/dL AST 64 H (15-37) IU/L ALT 121 H (14-63) IU/L Alkaline Phosphatase 101 (46-116) U/L Total Protein 7.2 (6.4-8.2) g/dL Albumin 3.5 (3.4-5.0) g/dL Globulin 3.7 H (2.0-3.5) g/dL Albumin/Globulin Ratio 1.0 L (1.3-2.8) Hepatitis A IgM Ab Negative (Negative) Hep Bs Antigen Negative (Negative) Hep Bs Antibody, Quant <3.1 L (Immunity>9.9) mIU/mL Hep B Core IgM Ab Negative (Negative) Hepatitis C Antibody <0.1 (0.0-0.9) s/co ratio 05/12/18 Range/Units 05:53 WBC 8.03 (4.0-11.0) K/uL RBC 4.94 (4.50-5.90) M/uL Hgb 15.0 (13.0-17.0) g/dL Hct 42.6 (38.0-50.0) % MCV 86.2 (80.0-98.0) fL MCH 30.4 (27.0-32.0) pg MCHC 35.2 (31.0-37.0) g/dL RDW Std Deviation 44.2 (28.0-62.0) fl RDW Coeff of Sylvia 14 (11.0-15.0) % Plt Count 214 (150-400) K/uL MPV 10.00 (7.40-12.00) fL Neut % (Auto) 73.8 (48.0-80.0) % Lymph % (Auto) 15.8 L (16.0-40.0) % [place] % (Auto) 8.3 (0.0-15.0) % Eos % (Auto) 1.9 (0.0-7.0) % Baso % (Auto) 0.2 (0.0-1.5) % Neut # (Auto) 5.9 H (1.4-5.7) K/uL Lymph # (Auto) 1.3 (0.6-2.4) K/uL [place] # (Auto) 0.7 (0.0-0.8) K/uL Eos # (Auto) 0.2 (0.0-0.7) K/uL Baso # (Auto) 0.0 (0.0-0.1) K/uL Nucleated RBC % 0.0 /100WBC Nucleated RBCs # 0 K/uL Sodium (136-148) mmol/L Potassium (3.5-5.1) mmol/L Chloride (98-107) mmol/L Carbon Dioxide (21.0-32.0) mmol/L BUN (7.0-18.0) mg/dL Creatinine (0.8-1.3) mg/dL Est Cr Clr Drug Dosing mL/min Estimated GFR (MDRD) ml/min Glucose (74-106) mg/dL Calcium (8.5-10.1) mg/dL Total Bilirubin (0.2-1.0) mg/dL AST (15-37) IU/L ALT (14-63) IU/L Alkaline Phosphatase (46-116) U/L Total Protein (6.4-8.2) g/dL Albumin (3.4-5.0) g/dL Globulin (2.0-3.5) g/dL Albumin/Globulin Ratio (1.3-2.8) Hepatitis A IgM Ab (Negative) Hep Bs Antigen (Negative) Hep Bs Antibody, Quant (Immunity>9.9) mIU/mL Hep B Core IgM Ab (Negative) Hepatitis C Antibody (0.0-0.9) s/co ratio Med Orders - Current: Current Medications Diazepam (Valium) 2 mg PO BID PRN PRN Reason: Anxiety Last Admin: 01/20/18 05:38 Dose: 2 mg Docusate Sodium (Colace) 100 mg PO DAILY [facility] Last Admin: 01/20/18 09:45 Dose: 100 mg Fentanyl (Duragesic) 25 mcg TRDERM Q72H [facility] Last Admin: 01/20/18 12:54 Dose: 25 mcg Dextrose/Sodium Chloride (Dextrose 5%-1/2 Ns) 1,000 mls @ 10 mls/hr IV ASDIRECTED [facility] Morphine Sulfate (Morphine Bookkeeping Manager 30 Mg In 30 Ml) 30 mg IV ASDIRECTED [facility]; Protocol Last Admin: 01/20/18 16:43 Dose: 30 mg Ondansetron HCl (Zofran) 4 mg IVPUSH Q4H PRN PRN Reason: Nausea/Vomiting Oxycodone HCl (Oxycodone) 10 mg PO Q6H [facility] Last Admin: 01/21/18 04:57 Dose: 10 mg Discontinued Medications Bisacodyl (Dulcolax) 10 mg RECTAL ONETIME ONE Stop: 01/17/18 09:49 Last Admin: 01/17/18 10:30 Dose: 10 mg Bisacodyl (Dulcolax) 10 mg RECTAL ONETIME ONE Stop: 01/19/18 09:02 Last Admin: 01/19/18 09:27 Dose: 10 mg Cyclobenzaprine HCl (Flexeril) 5 mg PO BID PRN PRN Reason: Pain Last Admin: 01/17/18 10:11 Dose: 5 mg Cyclobenzaprine HCl (Flexeril) 10 mg PO BID PRN PRN Reason: Pain Last Admin: 01/17/18 19:47 Dose: 10 mg Diazepam (Valium) 1 mg PO ONETIME ONE Stop: 01/15/18 21:06 Last Admin: 01/15/18 21:13 Dose: 1 mg Diazepam (Valium) 1 mg PO BID PRN PRN Reason: Spasms Last Admin: 01/16/18 08:41 Dose: 1 mg Diazepam (Valium) 1 mg PO Q8H PRN PRN Reason: Spasms Diazepam (Valium) Confirm Administered Dose 2 mg .ROUTE .STK-MED ONE Stop: 01/16/18 23:19 Last Admin: 01/17/18 03:31 Dose: Not Given Diazepam (Valium) 2 mg PO Q12H PRN PRN Reason: Anxiety Hydromorphone HCl (Dilaudid) 1 mg IVPUSH ONETIME ONE Stop: 01/15/18 00:32 Last Admin: 01/15/18 00:35 Dose: 1 mg Hydromorphone HCl (Dilaudid) 1 mg IVPUSH Q4H PRN PRN Reason: Pain Last Admin: 01/15/18 09:29 Dose: 1 mg Hydromorphone HCl (Dilaudid) 2 mg PO Q6H PRN PRN Reason: Pain Hydromorphone HCl (Dilaudid) 2 mg PO Q6H PRN PRN Reason: Pain (moderate 4-6) Last Admin: 01/15/18 19:39 Dose: 2 mg Dextrose/Sodium Chloride (Dextrose 5%-1/2 Ns) 1,000 mls @ 150 mls/hr IV ASDIRECTED [facility]NA[facility] Last Admin: 01/18/18 07:48 Dose: 150 mls/hr Iopamidol (Isovue-370 (76%)) 100 ml IVPUSH ONETIME ONE Stop: 01/15/18 01:59 Last Admin: 01/15/18 02:12 Dose: 100 ml Ketorolac Tromethamine (Toradol) 60 mg IM ONETIME ONE Stop: 01/14/18 23:27 Last Admin: 01/14/18 23:30 Dose: 60 mg Ketorolac Tromethamine (Toradol) 30 mg IVPUSH Q8H PRN PRN Reason: Abdominal Pain Stop: 01/20/18 10:48 Last Admin: 01/15/18 18:17 Dose: 30 mg Morphine Sulfate (Morphine) 3 mg IVPUSH Q4H PRN PRN Reason: Pain Last Admin: 01/16/18 07:33 Dose: 3 mg Morphine Sulfate (Morphine) 3 mg IVPUSH Q3H PRN PRN Reason: Pain Last Admin: 01/17/18 07:18 Dose: 3 mg Morphine Sulfate (Morphine) 10 mg .ROUTE .STK-MED ONE Stop: 01/17/18 09:28 Morphine Sulfate (Morphine) 2 mg IV Q4H PRN PRN Reason: Pain Last Admin: 01/17/18 15:13 Dose: 2 mg Morphine Sulfate (Morphine Bookkeeping Manager 30 Mg In 30 Ml) 30 mg IV ASDIRECTED [facility]; Protocol Last Admin: 01/20/18 06:36 Dose: 30 mg Oxycodone HCl (Oxycodone) 5 mg PO Q4H PRN PRN Reason: Pain Last Admin: 01/17/18 07:18 Dose: 5 mg Oxycodone HCl (Oxycodone) 5 mg PO Q6H PRN PRN Reason: Pain Last Admin: 01/17/18 12:48 Dose: 5 mg Oxycodone HCl (Oxycodone) 10 mg PO Q6H PRN PRN Reason: Pain Last Admin: 01/19/18 09:24 Dose: 10 mg - Exam General: Alert, Oriented HEENT: Pupils Equal, Pupils Reactive, EOMI, Mucous Membr. Moist/[place] Neck: Supple Lungs: Clear to Auscultation, Normal Respiratory Effort Cardiovascular: Regular Rate, Regular Rhythm GI/Abdominal Exam: Normal Bowel Sounds, Soft, Non-Tender, No Organomegaly, No Distention Extremities: Normal Inspection, No Pedal Edema, Normal Capillary Refill Skin: Warm, Dry, Intact Neurological: No New Focal Deficit Psy/Mental Status: Alert Consult PN Assessment/Plan Procedures: Procedures POLYSOM 6/>YRS CPAP 4/> PARM (08/15/17) Problem List Initiated/Reviewed/Updated: Yes My Orders Last 24 Hours: My Active Orders 01/20/18 12:15 fentaNYL [Duragesic] 25 mcg TRDERM Q72H Plan: #Multiple Rib Fractures, Left ribs 5-9, minimally displaced -no hypoxia -pain controlled with Fentanyl 25 mg patch and Oxycodone 10 mg Q6H -suspicion of underlying psychosomatic disorder Plan: -patient cleared for discharge from medicine -recommend discharge home with 2 weeks supply of pain medication -prescriptions provided for Fentanyl 25 mcg TD Q72H, total 5 patches & Oxycodone 10 mg PO Q6H, total 56 -f/u with PCP Dr. Parker on 02/03/18 -f/u with surgery Dr. Nugent on 02/15/18 #Elevated BP without history of HTN, likely secondary to pain -no indication for Anti-Hypertensive therapy at this time -f/u with PCP #Hyperbilirubinemia, improving #Elevated LFT, likely secondary to alcoholic hepatitis #elevated GGT, likely secondary to alcoholic hepatitis #Fatty Liver, likely secondary to alcoholic hepatitis #Alcohol Use Disorder -tolerating po intake, no jaundice, no signs of decompensation, barron sign negative -RUQ US negative for stones or CBD dilation -Hepatitis panel negative HBV and HCV -HBsAB negative Plan: -f/u with Dr. Nugent to discuss need for MRCP -f/u with PCP to discuss Hep b vaccination #Splenomegaly, on CT -likely secondary to chronic liver disease -f/u with PCP
[2018-01-21] MEDS: Docusate Sodium 100 MG Cap PO SCH (09:07)
[2018-01-21] MEDS ORDERED: Ketorolac 10 MG Tab PO SCH (09:30)
[2018-01-21] MEDS ORDERED: Cyclobenzaprine 10 MG Tab PO PRN (09:57)
--- NOTE | 2018-01-21 09:58 | PCM.DCSUM1 ---
Discharge Summary - Hospital Course Free Text/Narrative:: Patient is a 47 year old male who presented with left sided 5-10th rib fractures after falling. He was found to have fatty liver and splenomegaly incidentally. He had an abdominal US to verify this. Medicine saw patient for work up regarding pain control and liver function. Hepatitis labs were normal. His bilirubin, ALT and AST remained slightly elevated which was felt to be a chronic issue and possibly due to some minor hepatic trauma. He is tolerating a diet and having BM. His vitals today are stable. He was weaned off the FOOTBALL SCOUT onto a fentanyl patch. He is using po oxycodone and able to sit up comfortably in a chair. I scheduled toradol and wrote for po flexeril for muscle spasms. Patient feels well and is cleared for discharge. - Discharge Data Discharge Date: 01/21/18 Discharge Disposition: Home, Self-Care 01 Condition: Fair - Discharge Diagnosis/Problem(s) (1) Fatty liver SNOMED Code(s): 446165352 ICD Code: K76.0 - FATTY (CHANGE OF) LIVER, NOT ELSEWHERE CLASSIFIED Status : Acute Current Visit: Yes (2) Splenomegaly SNOMED Code(s): 26712352 ICD Code: R16.1 - SPLENOMEGALY, NOT ELSEWHERE CLASSIFIED Status: Acute Current Visit: Yes (3) Hyperbilirubinemia SNOMED Code(s): 57316680 ICD Code: E80.6 - OTHER DISORDERS OF BILIRUBIN METABOLISM Status: Acute Current Visit: Yes - Patient Summary/Data Consults: Consultations 01/18/18 10:10 Consult to Physical Therapy [PT Evaluation and Treatment] [CONS] Routine 01/18/18 10:19 Consult to Physician [CONS] Routine 01/18/18 10:20 Consult to Physical Therapy [PT Evaluation and Treatment] [CONS] Routine - Patient Instructions Diet: Regular Diet as Tolerated Activity: No Lifting Over 20 Pounds (for 4 weeks ), Rest and Relax Today Activity, Other: No work for two weeks Driving: Do Not Drive Driving, Other: No driving while on narcotics or for the next week Showering/Bathing: May Shower Notify Provider of: Fever, Increased Pain - Discharge Plan Prescriptions/Med Rec: Cyclobenzaprine [Flexeril] 10 mg PO BID PRN #30 tab PRN Reason: Muscle Spasm Docusate Sodium [Colace] 100 mg PO DAILY #30 cap Home Medications: Home Meds Cyclobenzaprine [Flexeril] 10 mg PO BID PRN #30 tab 01/21/18 [Rx] Docusate Sodium [Colace] 100 mg PO DAILY #30 cap 01/21/18 [Rx] Patient Handouts: Rib Fracture, [id number] Referrals: [facility] [Outside] Krishna Nugent MD [Physician] - 02/15/18 10:00 am Zeinab Parker DO [Physician] - 02/03/18 10:30 am - General Info Date of Service: 01/21/18 Functional Status: Reports: Pain Controlled, Tolerating Diet, Ambulating, Urinating - Review of Systems General: Reports: No Symptoms Cardiovascular: Reports: No Symptoms Gastrointestinal: Reports: No Symptoms Musculoskeletal: Reports: Other (Pain along left side of chest with movement, laughing, coughing. ) Neurological: Reports: No Symptoms Psychiatric: Reports: No Symptoms - Patient Data Vitals - Most Recent: Last Vital Signs Temp 36.1 C 01/21/18 08:00 Pulse 96 01/21/18 08:00 Resp 19 01/21/18 08:00 BP 142/92 H 01/21/18 08:00 Pulse Ox 95 01/21/18 08:00 Weight - Most Recent: 111.584 kg I&O - Last 24 hours: Intake & Output 01/20/18 01/21/18 01/21/18 22:59 06:59 14:59 Intake Total 2122 1126 Output Total 0 Balance 2122 1126 Lab Results - Last 24 hrs: Laboratory Results - last 24 hr 01/18/18 01/18/18 01/21/18 Range/Units 11:07 11:07 05:53 WBC (4.0-11.0) K/uL RBC (4.50-5.90) M/uL Hgb (13.0-17.0) g/dL Hct (38.0-50.0) % MCV (80.0-98.0) fL MCH (27.0-32.0) pg MCHC (31.0-37.0) g/dL RDW Std Deviation (28.0-62.0) fl RDW Coeff of Sylvia (11.0-15.0) % Plt Count (150-400) K/uL MPV (7.40-12.00) fL Neut % (Auto) (48.0-80.0) % Lymph % (Auto) (16.0-40.0) % [place] % (Auto) (0.0-15.0) % Eos % (Auto) (0.0-7.0) % Baso % (Auto) (0.0-1.5) % Neut # (Auto) (1.4-5.7) K/uL Lymph # (Auto) (0.6-2.4) K/uL [place] # (Auto) (0.0-0.8) K/uL Eos # (Auto) (0.0-0.7) K/uL Baso # (Auto) (0.0-0.1) K/uL Nucleated RBC % /100WBC Nucleated RBCs # K/uL Sodium 135 L (136-148) mmol/L Potassium 4.3 (3.5-5.1) mmol/L Chloride 100 (98-107) mmol/L Carbon Dioxide 29.8 (21.0-32.0) mmol/L BUN 20 H (7.0-18.0) mg/dL Creatinine 1.1 (0.8-1.3) mg/dL Est Cr Clr Drug Dosing 85.72 mL/min Estimated GFR (MDRD) > 60.0 ml/min Glucose 137 H (74-106) mg/dL Calcium 9.7 (8.5-10.1) mg/dL Total Bilirubin 2.1 H (0.2-1.0) mg/dL AST 64 H (15-37) IU/L ALT 121 H (14-63) IU/L Alkaline Phosphatase 101 (46-116) U/L Total Protein 7.2 (6.4-8.2) g/dL Albumin 3.5 (3.4-5.0) g/dL Globulin 3.7 H (2.0-3.5) g/dL Albumin/Globulin Ratio 1.0 L (1.3-2.8) Hepatitis A IgM Ab Negative (Negative) Hep Bs Antigen Negative (Negative) Hep Bs Antibody, Quant <3.1 L (Immunity>9.9) mIU/mL Hep B Core IgM Ab Negative (Negative) Hepatitis C Antibody <0.1 (0.0-0.9) s/co ratio /08/29 Range/Units 05:53 WBC 8.03 (4.0-11.0) K/uL RBC 4.94 (4.50-5.90) M/uL Hgb 15.0 (13.0-17.0) g/dL Hct 42.6 (38.0-50.0) % MCV 86.2 (80.0-98.0) fL MCH 30.4 (27.0-32.0) pg MCHC 35.2 (31.0-37.0) g/dL RDW Std Deviation 44.2 (28.0-62.0) fl RDW Coeff of Sylvia 14 (11.0-15.0) % Plt Count 214 (150-400) K/uL MPV 10.00 (7.40-12.00) fL Neut % (Auto) 73.8 (48.0-80.0) % Lymph % (Auto) 15.8 L (16.0-40.0) % [place] % (Auto) 8.3 (0.0-15.0) % Eos % (Auto) 1.9 (0.0-7.0) % Baso % (Auto) 0.2 (0.0-1.5) % Neut # (Auto) 5.9 H (1.4-5.7) K/uL Lymph # (Auto) 1.3 (0.6-2.4) K/uL [place] # (Auto) 0.7 (0.0-0.8) K/uL Eos # (Auto) 0.2 (0.0-0.7) K/uL Baso # (Auto) 0.0 (0.0-0.1) K/uL Nucleated RBC % 0.0 /100WBC Nucleated RBCs # 0 K/uL Sodium (136-148) mmol/L Potassium (3.5-5.1) mmol/L Chloride (98-107) mmol/L Carbon Dioxide (21.0-32.0) mmol/L BUN (7.0-18.0) mg/dL Creatinine (0.8-1.3) mg/dL Est Cr Clr Drug Dosing mL/min Estimated GFR (MDRD) ml/min Glucose (74-106) mg/dL Calcium (8.5-10.1) mg/dL Total Bilirubin (0.2-1.0) mg/dL AST (15-37) IU/L ALT (14-63) IU/L Alkaline Phosphatase (46-116) U/L Total Protein (6.4-8.2) g/dL Albumin (3.4-5.0) g/dL Globulin (2.0-3.5) g/dL Albumin/Globulin Ratio (1.3-2.8) Hepatitis A IgM Ab (Negative) Hep Bs Antigen (Negative) Hep Bs Antibody, Quant (Immunity>9.9) mIU/mL Hep B Core IgM Ab (Negative) Hepatitis C Antibody (0.0-0.9) s/co ratio Med Orders - Current: Current Medications Diazepam (Valium) 2 mg PO BID PRN PRN Reason: Anxiety Last Admin: 01/20/18 05:38 Dose: 2 mg Docusate Sodium (Colace) 100 mg PO DAILY [facility] Last Admin: 01/21/18 09:07 Dose: 100 mg Fentanyl (Duragesic) 25 mcg TRDERM Q72H [facility] Last Admin: 01/20/18 12:54 Dose: 25 mcg Dextrose/Sodium Chloride (Dextrose 5%-1/2 Ns) 1,000 mls @ 10 mls/hr IV ASDIRECTED [facility] Ketorolac Tromethamine (Toradol) 10 mg PO Q6H [facility] Stop: 01/26/18 09:31 Ondansetron HCl (Zofran) 4 mg IVPUSH Q4H PRN PRN Reason: Nausea/Vomiting Oxycodone HCl (Oxycodone) 10 mg PO Q6H [facility] Last Admin: 01/21/18 04:57 Dose: 10 mg Discontinued Medications Bisacodyl (Dulcolax) 10 mg RECTAL ONETIME ONE Stop: 01/17/18 09:49 Last Admin: 01/17/18 10:30 Dose: 10 mg Bisacodyl (Dulcolax) 10 mg RECTAL ONETIME ONE Stop: 01/19/18 09:02 Last Admin: 01/19/18 09:27 Dose: 10 mg Cyclobenzaprine HCl (Flexeril) 5 mg PO BID PRN PRN Reason: Pain Last Admin: 01/17/18 10:11 Dose: 5 mg Cyclobenzaprine HCl (Flexeril) 10 mg PO BID PRN PRN Reason: Pain Last Admin: 01/17/18 19:47 Dose: 10 mg Diazepam (Valium) 1 mg PO ONETIME ONE Stop: 01/15/18 21:06 Last Admin: 01/15/18 21:13 Dose: 1 mg Diazepam (Valium) 1 mg PO BID PRN PRN Reason: Spasms Last Admin: 01/16/18 08:41 Dose: 1 mg Diazepam (Valium) 1 mg PO Q8H PRN PRN Reason: Spasms Diazepam (Valium) Confirm Administered Dose 2 mg .ROUTE .STK-MED ONE Stop: 01/16/18 23:19 Last Admin: 01/17/18 03:31 Dose: Not Given Diazepam (Valium) 2 mg PO Q12H PRN PRN Reason: Anxiety Hydromorphone HCl (Dilaudid) 1 mg IVPUSH ONETIME ONE Stop: 01/15/18 00:32 Last Admin: 01/15/18 00:35 Dose: 1 mg Hydromorphone HCl (Dilaudid) 1 mg IVPUSH Q4H PRN PRN Reason: Pain Last Admin: 01/15/18 09:29 Dose: 1 mg Hydromorphone HCl (Dilaudid) 2 mg PO Q6H PRN PRN Reason: Pain Hydromorphone HCl (Dilaudid) 2 mg PO Q6H PRN PRN Reason: Pain (moderate 4-6) Last Admin: 01/15/18 19:39 Dose: 2 mg Dextrose/Sodium Chloride (Dextrose 5%-1/2 Ns) 1,000 mls @ 150 mls/hr IV ASDIRECTED ANALY Last Admin: 01/18/18 07:48 Dose: 150 mls/hr Iopamidol (Isovue-370 (76%)) 100 ml IVPUSH ONETIME ONE Stop: 01/15/18 01:59 Last Admin: 01/15/18 02:12 Dose: 100 ml Ketorolac Tromethamine (Toradol) 60 mg IM ONETIME ONE Stop: 01/14/18 23:27 Last Admin: 01/14/18 23:30 Dose: 60 mg Ketorolac Tromethamine (Toradol) 30 mg IVPUSH Q8H PRN PRN Reason: Abdominal Pain Stop: 01/20/18 10:48 Last Admin: 01/15/18 18:17 Dose: 30 mg Morphine Sulfate (Morphine) 3 mg IVPUSH Q4H PRN PRN Reason: Pain Last Admin: 01/16/18 07:33 Dose: 3 mg Morphine Sulfate (Morphine) 3 mg IVPUSH Q3H PRN PRN Reason: Pain Last Admin: 01/17/18 07:18 Dose: 3 mg Morphine Sulfate (Morphine) 10 mg .ROUTE .[facility] ONE Stop: 01/17/18 09:28 Morphine Sulfate (Morphine) 2 mg IV Q4H PRN PRN Reason: Pain Last Admin: 01/17/18 15:13 Dose: 2 mg Morphine Sulfate (Morphine Marine Firefighter 30 Mg In 30 Ml) 30 mg IV ASDIRECTED ANALY; Protocol Last Admin: 01/20/18 06:36 Dose: 30 mg Morphine Sulfate (Morphine Marine Firefighter 30 Mg In 30 Ml) 30 mg IV ASDIRECTED ANALY; Protocol Last Admin: 01/20/18 16:43 Dose: 30 mg Oxycodone HCl (Oxycodone) 5 mg PO Q4H PRN PRN Reason: Pain Last Admin: 01/17/18 07:18 Dose: 5 mg Oxycodone HCl (Oxycodone) 5 mg PO Q6H PRN PRN Reason: Pain Last Admin: 01/17/18 12:48 Dose: 5 mg Oxycodone HCl (Oxycodone) 10 mg PO Q6H PRN PRN Reason: Pain Last Admin: 01/19/18 09:24 Dose: 10 mg - Exam General: Reports: Alert, Oriented HEENT: Reports: Pupils Equal, Pupils Reactive Neck: Reports: Supple, Trachea Midline Lungs: Reports: Clear to Auscultation, Normal Respiratory Effort, Decreased Breath Sounds (Bilateral bases due to respiratory splinting) Cardiovascular: Reports: Regular Rate, Regular Rhythm GI/Abdominal Exam: Normal Bowel Sounds, Soft, Non-Tender, No Distention, No Mass Back Exam: Reports: Normal Inspection Extremities: Normal Inspection, Normal Range of Motion Skin: Reports: Warm, Dry, Intact Psy/Mental Status: Reports: Alert, Normal Affect, Normal Mood
== END 2018-01-21 12:10 | disposition home or self-care (01) | DRG 135 ==
LOC: MW.ED 23:09 → MW.MS 01-15 00:37 → OBSVTOIN 01-17 09:49 → MW.MS 01-17 12:20
PROVIDERS: ADMIT Surgery; ATTEND Surgery
DX: S22.42XA Multiple fractures of ribs, left side, initial encounter for closed fracture (principal); Y93.83 Activity, rough housing and horseplay; K76.0 Fatty (change of) liver, not elsewhere classified; R16.1 Splenomegaly, not elsewhere classified; E80.6 Other disorders of bilirubin metabolism; R03.0 Elevated blood-pressure reading, without diagnosis of hypertension; R52 Pain, unspecified; F17.210 Nicotine dependence, cigarettes, uncomplicated; Z72.89 Other problems related to lifestyle
CPT/HCPCS: 36415; 71045; 71045-26; 71046; 71046-26; 71101-26-LT; 71101-LT; 71250; 71250-26; 71260; 71260-26; 72080; 72080-26; 74177; 74177-26; 76705; 76705-26; 80053; 80074; 80305; 81001; 82728; 82977; 83036; 83550; 83615; 85025; 85610; 86706; 96372; 96374; 97161-GP; 97530-GP; 99285-25; A9270-GY; J1170; J1885; J2270; J2274; J7042; Q9967

== ENCOUNTER 2019-01-19 21:06 | Emergency (ER) | payer BC ==
[2019-01-19] MEDS ORDERED: Diphtheria,Pertussis(Acell),Tetanus Vaccine 0.5 ML Syringe IM ONE (21:18)
[2019-01-19] MEDS ORDERED: Bacitracin Oint 1 GM U/D Packet TOP ONE (21:18)
--- NOTE | 2019-01-19 21:32 | EDM.PDOC ---
ED HPI GENERAL MEDICAL PROBLEM - General Chief Complaint: Laceration Stated Complaint: LEFT HAND INJURY Time Seen by Provider: 01/19/19 21:17 Source of Information: Reports: Patient History Limitations: Reports: No Limitations - History of Present Illness INITIAL COMMENTS - FREE TEXT/NARRATIVE: HISTORY AND PHYSICAL: History of present illness: Patient is a 48-year-old male who presents to the emergency room with complaints of left fifth digit laceration. Patient was using a pulp grinder when the crying her neck to his finger. Appears to have no tendon involvement as he is able to flex and extend and grasped firmly. Does have some blacked skin fernández which are adjacent to the laceration. Patient is unsure of his last tetanus update. Review of systems: As per history of present illness and below otherwise all systems reviewed and negative. Past medical history: As per history of present illness and as reviewed below otherwise noncontributory. Surgical history: As per history of present illness and as reviewed below otherwise noncontributory. Social history: See social history for further information Family history: As per history of present illness and as reviewed below otherwise noncontributory. Physical exam: General: Well-developed and well-nourished 48-year-old male. Alert and oriented. Nontoxic appearing and in no acute distress. HEENT: Atraumatic, normocephalic, pupils equal and reactive bilaterally, negative for conjunctival pallor or scleral icterus, mucous membranes moist, trachea midline. No drooling or trismus noted. No meningeal signs. No hot potato voice noted. Lungs: Clear to auscultation, breath sounds equal bilaterally, chest nontender. Heart: S1S2, regular rate and rhythm without overt murmur Abdomen: Soft, nondistended, nontender. Skin: 2.5 cm laceration to the base of left fifth digit. Otherwise skin is intact, warm, dry. No lesions or rashes noted. Extremities: See skin for details, moves all extremities per self without difficulty or deficits. Laceration site appears to have no tendon involvement. Neurovascular unremarkable. Neuro: Awake, alert, oriented. Cranial nerves II through XII unremarkable. Cerebellum unremarkable. Motor and sensory unremarkable throughout. Exam nonfocal. Notes: 1% lidocaine was used to anesthetize the area. Chlorhexidine and wound wash was used to cleanse the area. Usual and customary procedures were followed for suture placement. 4-0 nylon, #4 interrupted sutures placed. Patient tolerated well. Tetanus was updated. Nonstick bacitracin dressing applied with education. Supportive care measures were reviewed and discussed. Voices understanding and is agreeable to plan of care. Denies any further questions or concerns at this time. Diagnostics: None Therapeutics: 1% lidocaine, wound care, bacitracin dressing,Tdap Impression: Laceration Plan: 1. Keep the area clean and dry. Continue to monitor for signs of infection. Sutures to be removed in 7-10 days. 2. Tylenol and/or ibuprofen as needed for pain management. 3. Please follow-up with your primary care provider in the next 1-2 days. Return to the ED as needed and as discussed. Definitive disposition and diagnosis as appropriate pending reevaluation and review of above. Left Hand Pain Score (Numeric/FACES): 2 - Related Data Allergies Allergy/AdvReac Type Severity Reaction Status Date / Time No Known Allergies Allergy Verified 01/19/19 21:14 Home Meds: Home Meds amLODIPine [Norvasc] 5 mg PO DAILY 01/19/19 [History] Past Medical History HEENT History: Reports: Cataract Other HEENT History: both eyes Gastrointestinal History: Reports: Other (See Below) Other Gastrointestinal History: umbilical hernia - Infectious Disease History Infectious Disease History: Reports: None - Past Surgical History HEENT Surgical History: Reports: Cataract Surgery GI Surgical History: Reports: Other (See Below) Other GI Surgeries/Procedures: umbilical hernia Musculoskeletal Surgical History: Reports: Carpal Tunnel Other Musculoskeletal Surgeries/Procedures:: both wrists Social & Family History - Family History Family Medical History: Noncontributory - Caffeine Use Caffeine Use: Reports: Coffee, Energy Drinks, Soda, Tea ED ROS GENERAL - Review of Systems Review Of Systems: ROS reveals no pertinent complaints other than HPI. ED EXAM, SKIN/RASH Exam: See Below (See dictation) ED SKIN PROCEDURES - Laceration/Wound Repair Left 5th digit Lac/Wound length In cm: 2.5 Appearance: Subcutaneous, Linear Distal NVT: No Tendon Injury Anesthetic Type: Local Local Anesthesia - Lidocaine (Xylocaine): 1% Plain Local Anesthetic Volume: 4cc Skin Prep: Chlorhexidine (Hibiciens), Saline Saline Irrigation (cc's): 25 Exploration/Debridement/Repair: Wound Explored, No Foreign Material Found Suture Size: 4-0 # of Sutures: 4 Suture Type: Nylon Drain Placement: No Sterile Dressing Applied: Provider Tetanus Status Addressed: Yes Complications: No Course - Vital Signs Last Recorded V/S: Last Vital Signs Temp 98.2 F 01/19/19 21:15 Pulse 76 01/19/19 21:15 Resp 17 01/19/19 21:15 BP 139/88 01/19/19 21:15 Pulse Ox 96 01/19/19 21:15 - Orders/Labs/Meds Orders: Active Orders 24 hr Category Date Time Status Vaccines to be Administered [RC] PER UNIT ROUTINE Care 01/19/19 21:18 Ordered Bacitracin [Bacitracin Oint 1 GM] Med 01/19/19 21:18 Once 1 dose TOP ONETIME ONE Diphth,Pertuss(Acell),Tet Vac [Adacel] Med 01/19/19 21:18 Once 0.5 ml IM .ONCE ONE Lidocaine 1% [Xylocaine-MPF 1%] Med 01/19/19 21:18 Once 5 ml INJECT ONETIME ONE Departure - Departure Time of Disposition: 21:36 Disposition: Home, Self-Care 01 Clinical Impression: Laceration - Discharge Information Referrals: Zeinab Parker DO [Primary Care Provider] - - My Orders Last 24 Hours: My Active Orders 01/19/19 21:18 Vaccines to be Administered [RC] PER UNIT ROUTINE Bacitracin [Bacitracin Oint 1 GM] 1 dose TOP ONETIME ONE Diphth,Pertuss(Acell),Tet Vac [Adacel] 0.5 ml IM .ONCE ONE Lidocaine 1% [Xylocaine-MPF 1%] 5 ml INJECT ONETIME ONE - Assessment/Plan Last 24 Hours: My Active Orders 01/19/19 21:18 Vaccines to be Administered [RC] PER UNIT ROUTINE Bacitracin [Bacitracin Oint 1 GM] 1 dose TOP ONETIME ONE Diphth,Pertuss(Acell),Tet Vac [Adacel] 0.5 ml IM .ONCE ONE Lidocaine 1% [Xylocaine-MPF 1%] 5 ml INJECT ONETIME ONE
== END 2019-01-19 22:10 | disposition home or self-care (01) ==
LOC: MW.ED 21:06
DX: S61.217A Laceration without foreign body of left little finger without damage to nail, initial encounter (principal); Z23 Encounter for immunization; Z79.899 Other long term (current) drug therapy; W31.89XA Contact with other specified machinery, initial encounter
CPT/HCPCS: 12002; 90471; 90715; 99282; J2001

== ENCOUNTER 2019-03-16 01:31 | Emergency (ER) | payer BC ==
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
--- NOTE | 2019-03-16 03:38 | CR ---
INDICATION: Pain. Trauma. FINDINGS: Three views of the left ankle show no evidence of acute fracture or dislocation. Soft tissue swelling over the lateral malleolus. No other bony or soft tissue abnormalities identified. Dictated by Esteban Nguyen MD @ 03/16/2019 3:37:08 AM Dictated by: Esteban Nguyen MD @ 03/16/2019 03:37:19 (Electronically Signed)
== END 2019-03-16 03:15 | disposition home or self-care (01) ==
LOC: MW.ED 01:31
DX: S90.02XA Contusion of left ankle, initial encounter (principal); I10 Essential (primary) hypertension; Z98.49 Cataract extraction status, unspecified eye; W22.8XXA Striking against or struck by other objects, initial encounter
CPT/HCPCS: 73610-26-LT; 73610-LT; 99283; 99283-25